=== PATIENT | female | born 1950 | race Caucasian/White ===

== ENCOUNTER → 2017-03-16 | Outpatient (CLI) | payer MEDICARE, OTHER ==
--- NOTE | 2017-03-16 09:32 | CTL ---
EXAMINATION TYPE: CT Low Dose Lung DATE OF EXAM ORDERED: 03/16/2017 HISTORY: . Lung cancer screening CT DLP: 75.[address] CTDI: 2.4 mGy Automated exposure control for dose reduction was used. SCREENING VISIT: 1. COMPARISON: None TECHNIQUE: Low dose computed tomography scan was performed through the chest at 1 mm thick sections a nd reconstructed images in the coronal plane at [address] DIAGNOSTIC QUALITY: Limited, but interpretable FINDINGS: LUNG NODULES: None. LUNGS: COPD: Severity: Minimal Fibrosis: Severity: None Lymph nodes: None Other findings: Scarring left lingula RIGHT PLEURAL SPACE: Effusion: None Calcification: None Thickening: None Pneumothorax: None LEFT PLEURAL SPACE: Effusion: None Calcification: None Thickening: None Pneumothorax: None HEART: Heart Size: Normal Coronary calcification: Mild to moderate Pericardial effusion: None OTHER FINDINGS: Upper abdomen: Unremarkable Bony thorax: Hypertrophic spondylosis within the spine Supraclavicular region: Unremarkable Other: None IMPRESSION: 1. NO SIGNIFICANT INTRATHORACIC ABNORMALITY. 2. DEGENERATIVE CHANGES WITHIN THE SPINE. FOLLOW UP CT CHEST RECOMMENDATION: Annual CT LUNG RAD: 1
== END | disposition home or self-care (01) ==
LOC: RADCTMAIN 08:43
PROVIDERS: ATTEND Internal Medicine Sleep Medicine
DX: Z12.2 Encounter for screening for malignant neoplasm of respiratory organs (principal); Z87.891 Personal history of nicotine dependence; M47.899 Other spondylosis, site unspecified

== ENCOUNTER → 2018-09-13 | Outpatient (CLI) | payer MEDICARE, OTHER ==
--- NOTE | 2018-09-13 12:17 | CTL ---
EXAMINATION TYPE: CT Low Dose Lung DATE OF EXAM ORDERED: 09/13/2018 COMPARISON: 03/16/2017 HISTORY: . Low Dose CT Lung Screening CT DLP: [address] CTDI: 3.41 mGy IV CONTRAST USED: None. SCREENING VISIT: First visit COMPARISON: None. TECHNIQUE: Low dose computed tomography scan was performed through the chest at 1 millimeter thick se ctions and reconstructed images in the coronal plane at [address] DIAGNOSTIC QUALITY: Satisfactory FINDINGS: LUNG NODULES: Not presentLeft lung: no nodules identified.Right lung: no nodules identified. LUNGS: COPD: Severity: None Fibrosis: Severity:None Lymph nodes: None Other findings: None RIGHT PLEURAL SPACE: Effusion: None Calcification: None Thickening: None Pneumothorax: None LEFT PLEURAL SPACE: Effusion: None Calcification: None Thickening: None Pneumothorax: None HEART: Heart Size: Mildly enlarged Coronary calcification: Mild Pericardial effusion: None OTHER FINDINGS: Upper abdomen: No significant abnormality Bony thorax: Degenerative changes Supraclavicular region: No significant abnormalityOther: No significant abnormalityI IMPRESSION: Benign FOLLOW UP CT CHEST RECOMMENDATION: Follow-up screening in one year CT LUNG RAD: 1
== END | disposition home or self-care (01) ==
LOC: RADCTMAIN 11:31
PROVIDERS: ATTEND Internal Medicine Sleep Medicine
DX: Z12.2 Encounter for screening for malignant neoplasm of respiratory organs (principal); Z87.891 Personal history of nicotine dependence

== ENCOUNTER → 2019-06-21 | Outpatient (CLI) | payer MEDICARE, OTHER ==
--- NOTE | 2019-06-21 20:00 | ECHOF ---
Referral Reason:R06.00 Dyspnea MEASUREMENTS -------- HEIGHT: 165.1 cm WEIGHT: 97.1 kg BP: IVSd: 1.4 cm (0.6 - 1.1) LVIDd: 6.1 cm (3.9 - 5.3) LVPWd: 1.5 cm (0.6 - 1.1) Ao Diam: 3.7 cm (2.0 - 3.7) AV Cusp: 1.9 cm (1.5 - 2.6) LA Diam: 4.4 cm (2.7 - 3.8) MV E Jermain: 0.60 m/s MV DecT: 255 ms MV A Jermain: 0.98 m/s MV E/A Ratio: 0.61 FINDINGS -------- Sinus rhythm. This was a technically difficult study with suboptimal views. All guido not well visulized Limite d Study There is moderate concentric left ventricular hypertrophy. Overall left ventricular systolic functi on is normal with, an EF between 55 - 60 %. The right ventricle is severely enlarged. The left atrium was not well visualized. The right atrium was not well visualized. xx ml of Lumason was utilized for enhancement of images. Septums are not well visualized. The aortic valve was not well visualized. The mitral valve was not well visualized. No mitral regurgitation. The tricuspid valve was not well visualized. The pulmonic valve was not well visualized. The aortic root size is normal. IVC Not well visulized. There is no pericardial effusion. CONCLUSIONS -------- 1. Sinus rhythm. 2. This was a technically difficult study with suboptimal views. 3. All guido not well visulized 4. Limited Study 5. There is moderate concentric left ventricular hypertrophy. 6. Overall left ventricular systolic function is normal with, an EF between 55 - 60 %. 7. The right ventricle is severely enlarged. 8. The left atrium was not well visualized. 9. The right atrium was not well visualized. 10. xx ml of Lumason was utilized for enhancement of images. 11. Septums are not well visualized. 12. The aortic valve was not well visualized. 13. The mitral valve was not well visualized. 14. No mitral regurgitation. 15. The tricuspid valve was not well visualized. 16. The pulmonic valve was not well visualized. 17. The aortic root size is normal. 18. IVC Not well visulized. 19. There is no pericardial effusion. SAMPLE WORKER: Soo Sands RDCS
== END | disposition home or self-care (01) ==
LOC: RADECHMAIN 14:15
PROVIDERS: ATTEND Family Medicine
DX: I51.7 Cardiomegaly (principal)
CPT/HCPCS: C8924; Q9950; 93308

== ENCOUNTER → 2019-09-19 | Outpatient (CLI) | payer MEDICARE, OTHER ==
--- NOTE | 2019-09-19 11:47 | CTL ---
EXAMINATION TYPE: CT Low Dose Lung DATE OF EXAM ORDERED: 09/19/2019 HISTORY: Long-term tobacco use. Lung cancer screening CT DLP: 132.[address] CTDI: 4.00 mGy Automated exposure control for dose reduction was used. SCREENING VISIT: Second visit after baseline COMPARISON: Prior studies 2019 and 2017 TECHNIQUE: Low dose computed tomography scan was performed through the chest at 1 mm thick sections a nd reconstructed images in the coronal plane at [address] DIAGNOSTIC QUALITY: Satisfactory FINDINGS: LUNG NODULES: None of significance few scattered micronodules for reference under 2 mm right upper lo be lateral aspect axial image 91, for reference 3 mm right upper lobe anterolateral nodule axial imag e 53. Nodules more localized to the right upper lobe. Nodules not significantly changed from prior st ud. No new greater than 4 mm nodules. LUNGS: COPD: Severity: Mild Fibrosis: Severity: Mild to moderate anterior lower lung Lymph nodes: No greater than 1 cm Other findings: None BILATERAL PLEURAL SPACE: Effusion: None Calcification: None Thickening: None Pneumothorax: None HEART: Heart Size: Normal Coronary calcification: Moderate three-vessel Pericardial effusion: None. OTHER FINDINGS: Upper abdomen: None Bony thorax: Mild/moderate multilevel anterior and lateral spurring. Supraclavicular region: None Other: None IMPRESSION: No new greater than 4 mm or enlarging nodules FOLLOW UP CT CHEST RECOMMENDATION: Annual low-dose lung screening CT should be considered. CT LUNG RAD: Lung-Rad 2 Benign Appearance or Behavior
== END | disposition home or self-care (01) ==
LOC: RADCTMAIN 11:08
PROVIDERS: ATTEND Internal Medicine Sleep Medicine
DX: Z12.2 Encounter for screening for malignant neoplasm of respiratory organs (principal); F17.210 Nicotine dependence, cigarettes, uncomplicated

== ENCOUNTER → 2021-06-15 | Outpatient (CLI) | payer MEDICARE, OTHER ==
--- NOTE | 2021-06-16 14:06 | MM ---
Reason for exam: screening (asymptomatic). Last mammogram was performed 2 years and 5 months ago. History: Patient is postmenopausal. Family history of breast cancer in daughter at age 46. Physical Findings: A clinical breast exam by your physician is recommended on an annual basis and results should be correlated with mammographic findings. MG 3D Screening Mammo W/Cad Bilateral CC, MLO, and XCCL view(s) were taken. Prior study comparison: January 03, 2019, mammogram, performed at [facility]. June 28, 2016, mammogram, performed at [facility]. There are scattered fibroglandular densities. There is chronic nodularity bilaterally. No significant changes when compared with prior studies. ASSESSMENT: Benign, BI-RAD 2 RECOMMENDATION: Routine screening mammogram of both breasts in 1 year.
== END | disposition home or self-care (01) ==
LOC: RADMAMWWP 15:50
PROVIDERS: ATTEND Family Medicine
DX: Z12.31 Encounter for screening mammogram for malignant neoplasm of breast (principal); Z78.0 Asymptomatic menopausal state; Z80.3 Family history of malignant neoplasm of breast
CPT/HCPCS: 77063; 77067

== ENCOUNTER → 2022-05-25 | Outpatient (CLI) | payer MEDICARE, OTHER ==
[2022-05-25 16:19] LABS: HCT 41.5 % (37.2-46.3); HGB 12.5 g/dL (12.0-15.0); MCH 28.7 pg (27.0-32.0); MCHC 30.1 g/dL (32.0-37.0); MCV 95.2 fL (80.0-97.0); Mean Platelet Volume 12.2 fL (9.5-12.2); NRBC Per 100 WBC 0 /100 WBCS (0.0-0.0); Platelet Count 361 X 10*3/uL (140-440); RBC 4.36 X 10*6/uL (4.10-5.20); RDW 13.6 % (11.5-14.5); WBC 8.37 X 10*3/uL (4.50-10.00)
[2022-05-25 16:34] LABS: African American GFR (CKD) 66.1 (60.0-200.0); Anion Gap 13.8 mmol/L (10.00-18.00); Blood Urea Nitrogen 13.2 mg/dL (9.0-27.0); Carbon Dioxide 26.2 mmol/L (20.0-27.5); Potassium 4.5 mmol/L (3.5-5.5)
== END | disposition home or self-care (01) ==
LOC: LABWHC1 07:44
PROVIDERS: ATTEND Internal Medicine Interventional Cardiology
DX: Z01.812 Encounter for preprocedural laboratory examination (principal); R06.02 Shortness of breath
CPT/HCPCS: 36415; 80051; 82565; 84520; 85027

== ENCOUNTER 2022-06-08 06:00 | Day surgery (SDC) | payer MEDICARE, OTHER ==
[~2022-06-08 06:00] MED LIST: ALPRAZolam 0.25 MG TAB PO PRN; ALPRAZolam 0.5 MG TAB PO PRN; NITROGLYCERIN SL TABS 0.4 MG TAB SUBLINGUAL PRN; SODIUM CHLORIDE 0.9% 1,000 ML in EMPTY BAG 1 BAG IV ONE
[2022-06-08] MEDS ORDERED: ASPIRIN 325 MG TAB PO ONE (07:00)
[2022-06-08 07:16] LABS: Calcium 9.1 mg/dL (8.4-10.2); Potassium 4.6 mmol/L (3.5-5.1)
[2022-06-08] MEDS ORDERED: HEPARIN SODIUM 1,000 UN/ML (10ML VL) ONE (07:50)
[2022-06-08] MEDS ORDERED: MIDAZOLAM 2 MG/2 ML VIAL IV ONE ×3 (07:55→08:05)
[2022-06-08] MEDS ORDERED: LIDOCAINE 1% INJ 10MG/ML (30 ML VIAL-PF) SQ ONE ×2 (07:55→08:01)
[2022-06-08] MEDS ORDERED: VERAPAMIL SYRINGE (5 MG/10 ML) INTRAARTER ONE (08:02)
[2022-06-08] MEDS: HEPARIN SODIUM 1,000 UN/ML (10ML VL) IV ONE ×2 (08:03→08:32)
[2022-06-08] MEDS ORDERED: HEPARIN SODIUM 1,000 UN/ML (10ML VL) IV ONE (08:03)
[2022-06-08] MEDS ORDERED: CLOPIDOGREL 75 MG TAB ONE (08:10)
[2022-06-08] MEDS ORDERED: CLOPIDOGREL 75 MG TAB PO ONE (08:15)
[2022-06-08] MEDS ORDERED: IOPAMIDOL-370 125ML BTL INJ ONE (08:22)
[2022-06-08] MEDS ORDERED: IPRATROPIUM-ALBUTEROL 3 ML NEB INHALATION PRN (08:27)
[2022-06-08] MEDS ORDERED: MAG HYDROX/AL HYDROX/SIMETH 30 ML CUP PO PRN (08:28)
[2022-06-08] MEDS ORDERED: ATROPINE SULFATE 0.1 MG/ML 10ML SYRINGE IV PRN (08:28)
[2022-06-08] MEDS ORDERED: RX INFO: IV CONTRAST WAS GIVEN 1 EACH MISC MISCELLANE PRN (08:28)
[2022-06-08] MEDS ORDERED: NITROGLYCERIN SL TABS 0.4 MG TAB SUBLINGUAL PRN (08:28)
[2022-06-08] MEDS ORDERED: ZOLPIDEM 5 MG TAB PO PRN (08:28)
[2022-06-08] MEDS ORDERED: SODIUM CHLORIDE 0.9% 1,000 ML in EMPTY BAG 1 BAG IV SCH (08:30)
--- NOTE | 2022-06-08 08:32 | P.PCN ---
Date of Procedure: 06/08/22 Operative Findings: PERCUTANEOUS CORONARY INTERVENTION Performing physician Santosh Odonnell M.D. Procedure Performed: 1. Successful stenting of the first obtuse marginal branch using 2.75 x 15 mm Xience drug-eluting stent with an excellent angiographic results. 2. Selective left coronary angiogram Indication: This is a 71-year-old female patient was seen in the office ascending or chest discomfort and she underwent myocardial perfusion imaging stress test and that showed moderate area of ischemia in the inferolateral wall. Subsequently she underwent a heart catheterization and that revealed phthisical disease involving OM. She was brought today to undergo an intervention Approach: Right radial artery Complications: None Level of Sedation: Moderate with a sedation length of 24 minute Procedure Discussion: After obtaining an informed consent the patient was brought to the cardiac slabbing machine operator. The right radial artery was cannulated using micropuncture technique, the micropuncture wire passed easily then I placed a 6-Vincentian sheath. I gave the patient 2 mg of verapamil intra-arterial and a total of 12,000 use of heparin intravenous throughout the procedure with ACT monitoring. Subsequently I did engage the left main using CLS guide. That was 3.5 guide. Subsequently I did wire and OM1 using initially a whisper wire and subsequently a run-through wire because of the tortuosity of the OM as well as the long left main. After that I did PTCA ballooning of OM using 2.5 x 12 mm balloon before I deployed 2.75 x 15 mm stent where the stent was positioned under fluoroscopy guidance and deployed under its nominal pressure. Post titration was performed using 3.0 mm balloon. The final angiogram showed excellent angiographic results and the procedure was completed without any complications Postprocedure Management: 1. Dual antiplatelet therapy using aspirin and Plavix for at least 6 month and preferably twelve-month 2. Aggressive cholesterol control 3. Risk factors modification
[2022-06-08] MEDS ORDERED: MAG HYDROX/AL HYDROX/SIMETH 30 ML CUP ONE (08:41)
[2022-06-08] MEDS: PARoxetine 20 MG TAB PO SCH (09:57)
[2022-06-08] MEDS: ATORVASTATIN 40 MG TAB PO SCH (09:57)
[2022-06-08] MEDS: lisinopriL 20 MG TAB PO SCH (09:57)
[2022-06-08] MEDS: METOPROLOL SUCCINATE (ER) 25 MG TAB.ER.24H PO SCH (09:57)
[2022-06-08] MEDS: DILTIAZEM CD 120 MG CAP.ER.24H PO SCH (09:57)
[2022-06-08] MEDS: IPRATROPIUM 0.5 MG/2.5 ML NEBU INHALATION SCH ×3 (12:28→19:33)
[2022-06-08] MEDS: SYMBICORT 80-4.5 MCG INHALER INHALATION SCH ×2 (12:28→19:33)
[2022-06-09 07:55] LABS: Basophils % (A) 1 %; Eosinophils # (A) 0.1 k/uL (0-0.7); Eosinophils % (A) 2 %; HCT 35.7 % (34.0-46.0); HGB 11.4 gm/dL (11.4-16.0); Lymphocytes # (A) 1.6 k/uL (1.0-4.8); Lymphocytes % (A) 24 %; MCH 29.4 pg (25.0-35.0); MCHC 31.9 g/dL (31.0-37.0); MCV 92.2 fL (80.0-100.0); Mean Platelet Volume 8.5; Monocytes # (A) 0.4 k/uL (0-1.0); Monocytes % (A) 5 %; Neutrophils # (A) 4.5 k/uL (1.3-7.7); Neutrophils % (A) 66 %; Platelet Count 267 k/uL (150-450); RBC 3.88 m/uL (3.80-5.40); RDW 13.5 % (11.5-15.5); WBC 6.7 k/uL (3.8-10.6)
[2022-06-09 08:08] LABS: African American GFR (CKD) 78 (>60 ml/min/1.73 sqM); Anion Gap 8 mmol/L; Blood Urea Nitrogen 22 mg/dL (7-17); Calcium 8.9 mg/dL (8.4-10.2); Carbon Dioxide 27 mmol/L (22-30); Chloride 104 mmol/L (98-107); Glucose 125 mg/dL (74-99); Non-African American GFR(CKD) 67 (>60 ml/min/1.73 sqM); Potassium 4.6 mmol/L (3.5-5.1); Sodium 139 mmol/L (137-145)
[2022-06-09] MEDS: METOPROLOL SUCCINATE (ER) 25 MG TAB.ER.24H PO SCH (08:37)
[2022-06-09] MEDS: lisinopriL 20 MG TAB PO SCH (08:37)
[2022-06-09] MEDS: DILTIAZEM CD 120 MG CAP.ER.24H PO SCH (08:38)
[2022-06-09] MEDS: PARoxetine 20 MG TAB PO SCH (08:38)
[2022-06-09] MEDS: ATORVASTATIN 40 MG TAB PO SCH (08:38)
[2022-06-09 08:47] VITALS: BP 102/62; RESP 16; TEMP 97.6
[2022-06-09] MEDS ORDERED: CLOPIDOGREL 75 MG TAB PO SCH (09:00)
[2022-06-09] MEDS ORDERED: ASPIRIN 81 MG PO SCH (09:00)
--- NOTE | 2022-06-09 09:06 | P.DS ---
Providers Attending physician: Santosh Odonnell Consults: 06/08/22 08:28 Consult Physician Routine Consulting Provider: [facility] Consult Reason/Comments: Post Interventional Patient Do you want consulting provider notified?: Already Contacted Primary care physician: García Chacon [facility] Course: The patient is a 71-year-old female patient who underwent yesterday successful stenting of the left circumflex coronary artery She was seen this morning beach she is asymptomatic be cheesy with an echo is stable. The right radial site is soft and nontender and without any bruises. The patient is going to be discharged home on dual antiplatelet therapy and I'll follow-up with the patient in a week in the office Plan - Discharge Summary Discharge Rx Participant: No New Discharge Prescriptions: No Action lisinopriL [Zestril] 20 mg PO DAILY Ipratropium-Albuterol Nebulize [Duoneb 0.5 mg-3 mg/3 ml Soln] 3 ml INHALATION DIRECTED PRN PRN Reason: Shortness Of Breath Fluticasone/Umeclidin/Vilanter [Trelegy Ellipta 100-62.5-25] 1 inhalation INHALATION DAILY PARoxetine [Paxil] 20 mg PO DAILY Atorvastatin [Lipitor] 40 mg PO DAILY dilTIAZem HCL [Cardizem CD] 120 mg PO DAILY Metoprolol Succinate (ER) [Toprol Xl] 25 mg PO DAILY Aspirin [Bertrand Aspirin EC] 81 mg PO DAILY Discharge Medication List Aspirin [Bertrand Aspirin EC] 81 mg PO DAILY 06/07/22 [History] Atorvastatin [Lipitor] 40 mg PO DAILY 06/07/22 [History] Fluticasone/Umeclidin/Vilanter [Trelegy Ellipta 100-62.5-25] 1 inhalation INHALATION DAILY 06/07/22 [History] Ipratropium-Albuterol Nebulize [Duoneb 0.5 mg-3 mg/3 ml Soln] 3 ml INHALATION DIRECTED PRN 06/07/22 [History] Metoprolol Succinate (ER) [Toprol Xl] 25 mg PO DAILY 06/07/22 [History] PARoxetine [Paxil] 20 mg PO DAILY 06/07/22 [History] dilTIAZem HCL [Cardizem CD] 120 mg PO DAILY 06/07/22 [History] lisinopriL [Zestril] 20 mg PO DAILY 06/07/22 [History]
[2022-06-09] MEDS: SYMBICORT 80-4.5 MCG INHALER INHALATION SCH (09:15)
[2022-06-09] MEDS: IPRATROPIUM 0.5 MG/2.5 ML NEBU INHALATION SCH (09:15)
[2022-06-09 09:25] VITALS: PULSE 69
== END 2022-06-09 10:30 | disposition home or self-care (01) ==
LOC: CATHCVL 06:00 → 6NMEDSUR 08:37 → CATHCVL 06-09 10:30
PROVIDERS: ATTEND Internal Medicine Interventional Cardiology
DX: I25.10 Atherosclerotic heart disease of native coronary artery without angina pectoris (principal); I77.1 Stricture of artery; J44.9 Chronic obstructive pulmonary disease, unspecified; I10 Essential (primary) hypertension; E78.5 Hyperlipidemia, unspecified; Z82.49 Family history of ischemic heart disease and other diseases of the circulatory system; Z20.822 Contact with and (suspected) exposure to COVID-19; Z72.0 Tobacco use; R00.0 Tachycardia, unspecified; E66.3 Overweight; Z68.38 Body mass index [BMI] 38.0-38.9, adult; Z79.82 Long term (current) use of aspirin; Z79.51 Long term (current) use of inhaled steroids; Z79.899 Other long term (current) drug therapy; Z79.52 Long term (current) use of systemic steroids; Z88.8 Allergy status to other drugs, medicaments and biological substances
CPT/HCPCS: 94640 ×4; 94760; 80048 ×2; 85025; 87635; C9600; C1769 ×3; C1887; C1894; C1725 ×2; C1874; J2250; J2001; J1644; Q9967

== ENCOUNTER → 2023-07-11 | Outpatient (CLI) | payer MEDICARE, OTHER ==
--- NOTE | 2023-07-12 07:49 | MM ---
Reason for Exam: Screening (asymptomatic). Last mammogram was performed 2 year(s) and 0 month(s) ago. Patient History: Menarche at age 14. First Full-Term at age 23. Postmenopausal. Daughter had breast cancer, age 46. Risk Values: Jo Ann 5 year model risk: 3.3%. NCI Lifetime model risk: 9.1%. Prior Study Comparison: 06/28/2016 Screening Mammogram, [facility]. 01/03/2019 Screening Mammogram, [facility]. 06/15/2021 Bilateral Screening Mammogram, [facility]. Tissue Density: There are scattered fibroglandular densities. Findings: Analyzed By CAD. There is no suspicious group of microcalcifications or new suspicious mass in either breast. Stable chronic nodularity within both breasts. Overall Assessment: Benign, BI-RAD 2 Management: Screening Mammogram of both breasts in 1 year. A clinical breast exam by your physician is recommended on an annual basis and results should be correlated with mammographic findings. Note on Jo Ann scores and lifetime risk: 1. A Jo Ann score greater than 3% is considered moderate risk. If this is the case, consider specialist referral to assess eligibility for a risk reducing agent. If overall lifetime risk for the development of breast cancer is 20% or higher, the patient may qualify for future screening with alternating mammogram and breast MRI. Electronically signed and approved by: Saw Chowdhury D.O.
== END | disposition home or self-care (01) ==
LOC: RADMAMWWP 10:33
PROVIDERS: ATTEND Family Medicine
DX: Z12.31 Encounter for screening mammogram for malignant neoplasm of breast (principal); Z78.0 Asymptomatic menopausal state; Z80.3 Family history of malignant neoplasm of breast
CPT/HCPCS: 77063; 77067

== ENCOUNTER → 2023-08-01 | Outpatient (CLI) | payer MEDICARE, OTHER ==
[~2023-08-01] MED LIST changes: -ALPRAZolam 0.25 MG TAB PO PRN; -ALPRAZolam 0.5 MG TAB PO PRN; +DENOSUMAB 60 MG/ML 1 ML SYRINGE SQ NR; -NITROGLYCERIN SL TABS 0.4 MG TAB SUBLINGUAL PRN; -SODIUM CHLORIDE 0.9% 1,000 ML in EMPTY BAG 1 BAG IV ONE
[2023-08-01 11:23] VITALS: BP 121/70; PULSE 60; RESP 16; TEMP 98
== END ==
LOC: PROCWHC3 10:36
PROVIDERS: ATTEND Family Medicine
DX: M81.0 Age-related osteoporosis without current pathological fracture (principal)
CPT/HCPCS: 96372; J0897

== ENCOUNTER 2023-10-02 17:06 | Inpatient (IN) | payer MEDICARE, OTHER ==
--- NOTE | 2023-10-02 17:51 | ED ---
General Adult HPI - General Source: patient Mode of arrival: ambulatory Limitations: no limitations <Sandie Patel - Last Filed: 10/02/23 17:50> - History of Present Illness -: days(s) Location: left, lower extremity Radiation: non-radiation Quality: aching Consistency: constant Improves with: none Worsens with: none Associated Symptoms: denies other symptoms Treatments Prior to Arrival: splint <Alexi Tai - Last Filed: 10/03/23 04:30> - General Chief complaint: Extremity Injury, Lower Stated complaint: Broken Left Ankle-sent [facility] Time Seen by Provider: 10/02/23 17:50 - History of Present Illness Initial comments: Patient sent in for admission for pending surgery for a left ankle fracture. (Sandie Patel) Patient is 73-year-old woman who was sent to have admission in order to have ORIF of left lower extremity fracture. Patient states she had a fall days ago. She had gone to the clinic today and they sent her here to have admission. She states there is a little bit of aching though the pain is not awful. She denies numbness of the foot. She states she is able to move the toes. (Alexi Tai) - Related Data Home Medications Medication Instructions Recorded Confirmed Aspirin [[place] Aspirin EC] 81 mg PO DAILY 06/07/22 10/02/23 Fluticasone/Umeclidin/Vilanter 1 puff INHALATION RT-DAILY 06/07/22 10/02/23 [Albertletereso Ellipta 100-62.5-25] Ipratropium-Albuterol Nebulize 3 ml INHALATION RT-QID PRN 06/07/22 10/02/23 [Duoneb 0.5 mg-3 mg/3 ml Soln] Metoprolol Succinate (ER) [Toprol 25 mg PO DAILY 06/07/22 10/02/23 XL] dilTIAZem HCL [Cardizem CD] 120 mg PO DAILY 06/07/22 10/02/23 lisinopriL [Zestril] 20 mg PO DAILY 06/07/22 10/02/23 Acetaminophen Tab [Tylenol Tab] 1,000 mg PO Q6HR PRN 10/02/23 10/02/23 Atorvastatin [Lipitor] 80 mg PO HS 10/02/23 10/02/23 Cholecalciferol [Vitamin D3 (25 25 mcg PO DAILY 10/02/23 10/02/23 Mcg = 1000 Iu)] Docusate [Colace] 100 mg PO TID PRN 10/02/23 10/02/23 Ezetimibe [Zetia] 10 mg PO HS 10/02/23 10/02/23 HYDROcodone/APAP 5-325MG [[place] 1 - 2 tab PO Q4HR PRN 10/02/23 10/02/23 5-325] Ibuprofen [Motrin] 800 mg PO Q8H PRN 10/02/23 10/02/23 Metoclopramide [Reglan] 10 mg PO ACHS PRN 10/02/23 10/02/23 PARoxetine HCL [Paxil] 30 mg PO DAILY 10/02/23 10/02/23 Triamcinolone 0.1% Cream [Kenalog 1 applicatio TOPICAL BID PRN 10/02/23 10/02/23 0.1% Cream] Previous Rx's Medication Instructions Recorded Clopidogrel [Plavix] 75 mg PO DAILY tab 06/09/22 Allergies Allergy/AdvReac Type Severity Reaction Status Date / Time No Known Allergies Allergy Verified 10/02/23 21:22 Review of Systems ROS Other: All systems not noted in ROS Statement are negative. <Sandie Patel - Last Filed: 10/02/23 17:50> ROS Other: All systems not noted in ROS Statement are negative. Constitutional: Denies: fever, chills, weakness Respiratory: Denies: cough, dyspnea Cardiovascular: Denies: chest pain, syncope Gastrointestinal: Denies: abdominal pain, vomiting, diarrhea Genitourinary: Denies: dysuria, hematuria Musculoskeletal: Reports: as per HPI, arthralgia Skin: Denies: rash Neurological: Denies: headache, weakness, numbness <Alexi Tai - Last Filed: 10/03/23 04:30> ROS Statement: Those systems with pertinent positive or pertinent negative responses have been documented in the HPI. Past Medical History Past Medical History: COPD, Hyperlipidemia, Hypertension, Osteoarthritis (OA) Additional Past Medical History / Comment(s): recent stress test History of Any Multi-Drug Resistant Organisms: None Reported Past Surgical History: Section, Heart Catheterization, Orthopedic Surgery Additional Past Surgical History / Comment(s): recent heart cath 9/22 @[facility] Orozco, right CTS Past Anesthesia/Blood Transfusion Reactions: No Reported Reaction Past Psychological History: Anxiety Smoking Status: Former smoker Past Alcohol Use History: None Reported <Sandie Patel - Last Filed: 10/02/23 17:50> General Exam Limitations: no limitations <Sandie Patel - Last Filed: 10/02/23 17:50> Limitations: no limitations General appearance: alert, in no apparent distress Head exam: Present: atraumatic, normocephalic Eye exam: Present: normal appearance. Absent: scleral icterus, conjunctival injection Neck exam: Present: normal inspection, full ROM. Absent: tenderness Respiratory exam: Present: normal lung sounds bilaterally. Absent: respiratory distress, wheezes, rales, rhonchi, stridor, accessory muscle use Cardiovascular Exam: Present: regular rate, normal rhythm, normal heart sounds. Absent: systolic murmur, diastolic murmur, rubs, gallop GI/Abdominal exam: Present: soft. Absent: tenderness, guarding, rebound Extremities exam: Present: other (Patient does have lower leg splint to the left lower extremity. The patient does have sensation and motor function to the toes. They are displaying mild edema. Normal capillary refill.) Back exam: Absent: vertebral tenderness Neurological exam: Present: alert. Absent: motor sensory deficit Skin exam: Present: warm, dry, intact, normal color. Absent: rash <Alexi Tai - Last Filed: 10/03/23 04:30> - General Exam Comments Initial Comments: Visual Physical Exam Vital signs reviewed General: Well-appearing, nontoxic, no acute distress. Head: Normocephalic, atraumatic Eyes: PERRLA, EOMI ENT: Airway patent Chest: Nonlabored breathing Skin: No visual rash, normal skin tone Neuro: Alert and oriented 3 Musculoskeletal:left ankle pain (Sandie Patel) Course Vital Signs 10/02/23 10/02/23 10/02/23 17:10 20:20 22:43 Temperature 98.1 F Pulse Rate 83 69 68 Respiratory 20 18 18 Rate Blood Pressure 151/79 120/58 126/73 O2 Sat by Pulse 97 95 96 Oximetry 10/02/23 10/03/23 23:16 01:40 Temperature Pulse Rate 68 67 Respiratory 19 17 Rate Blood Pressure 110/66 124/61 O2 Sat by Pulse 98 95 Oximetry Medical Decision Making <Sandie Patel - Last Filed: 10/02/23 17:50> - Lab Data Result diagrams: 10/02/23 18:33 10/02/23 18:33 <Alexi Tai - Last Filed: 10/03/23 04:30> - Medical Decision Making Quick note portion completed by myself, electronically signed DEBORAH Cage. (Sandie Patel) Patient is 73-year-old woman sent here to have admission pending surgery for left lower extremity ORIF. I phoned Dr. Koenig who is covering for orthopedic [facility] and she requests admission. Was pt. sent in by a medical professional or institution (, PA, TICKET ATTENDANT, urgent care, hospital, or half-way...) When possible be specific @ -This the patient was sent from orthopedic [facility] clinic as above Did you speak to anyone other than the patient for history (EMS, parent, family, police, friend...)? What history was obtained from this source @ -[The patient's family did contribute to history Did you review nursing and triage notes (agree or disagree)? Why? @ -[I reviewed and agree with nursing and triage notes] Were old charts reviewed (outside hosp., previous admission, EMS record, old EKG, old radiological studies, urgent care reports/EKG's, half-way records)? Report findings @ -[No old charts were reviewed] Differential Diagnosis (chest pain, altered mental status, abdominal pain women, abdominal pain men, vaginal bleeding, weakness, fever, dyspnea, syncope, headache, dizziness, GI bleed, back pain, seizure, CVA, palpatations, mental health, musculoskeletal)? @ -[Differential Musculoskeletal Muscular strain, contusion, ligament sprain, fracture, arthritis, septic arthri tis, bursitis, cellulitis, muscle spasm, nerve compression, DVT, arterial occlusion, herpes zoster, electrolyte abnormality, tumor.... This is not meant to be in all inclusive list EKG interpreted by me (3pts min.). @ -[As above] X-rays interpreted by me (1pt min.). @ -[None done] CT interpreted by me (1pt min.). @ -[None done] U/S interpreted by me (1pt. min.). @ -[None done] What testing was considered but not performed or refused? (CT, X-rays, U/S, labs)? Why? @ -[None] What meds were considered but not given or refused? Why? @ -[None] Did you discuss the management of the patient with other professionals (professionals i.e. , PA, TICKET ATTENDANT, lab, RT, psych nurse, social work supervisor, delivery supervisor, teacher, bank compliance officer, renal case manager)? Give summary @ -[Case discussed with Dr. Koenig as above Was smoking cessation discussed for >3mins.? @ -[No] Was critical care preformed (if so, how long)? @ -[No] Were there social determinants of health that impacted care today? How? (Homelessness, low income, unemployed, alcoholism, drug addiction, trans portation, low edu. Level, literacy, decrease access to med. care, prison, rehab)? @ -[No] Was there de-escalation of care discussed even if they declined (Discuss DNR or withdrawal of care, Hospice)? DNR status @ -[No] What co-morbidities impacted this encounter? (DM, HTN, Smoking, COPD, CAD, Cancer, CVA, ARF, Chemo, Hep., AIDS, mental health diagnosis, sleep apnea, morbid obesity)? @ -[None] Was patient admitted / discharged? Hospital course, mention meds given and route, prescriptions, significant lab abnormalities, going to OR and other pertinent info. @ -[Patient be admitted, made nothing by mouth after midnight, the patient's Plavix will be held pending surgery. Undiagnosed new problem with uncertain prognosis? @ -[No] Drug Therapy requiring intensive monitoring for toxicity (Heparin, Nitro, Ins ulin, Cardizem)? @ -[No] Were any procedures done? @ -[No] Diagnosis/symptom? @ -[Left lower extremity fracture Acute, or Chronic, or Acute on Chronic? @ -[Acute Uncomplicated (without systemic symptoms) or Complicated (systemic symptoms)? @ -[Uncomplicated Side effects of treatment? @ -[No] Exacerbation, Progression, or Severe Exacerbation? @ -[No] Poses a threat to life or bodily function? How? (Chest pain, [place], [place], pneumonia, PE, COPD, DKA, ARF, appy, cholecystitis, CVA, Diverticulitis, Homicidal, Suicidal, threat to staff... and all critical care pts) @ -[No] (Alexi Tai) - Lab Data Lab Results 10/02/23 10/02/23 10/02/23 Range/Units 18:33 18:33 18:33 WBC 13.5 H (3.8-10.6) k/uL RBC 4.31 (3.80-5.40) m/uL Hgb 13.1 (11.4-16.0) gm/dL Hct 39.3 (34.0-46.0) % MCV 91.1 (80.0-100.0) fL MCH 30.4 (25.0-35.0) pg MCHC 33.4 (31.0-37.0) g/dL RDW 13.4 (11.5-15.5) % Plt Count 363 (150-450) k/uL MPV 8.2 Neutrophils % 76 % Lymphocytes % 17 % Monocytes % 5 % Eosinophils % 0 % Basophils % 0 % Neutrophils # 10.2 H (1.3-7.7) k/uL Lymphocytes # 2.3 (1.0-4.8) k/uL Monocytes # 0.6 (0-1.0) k/uL Eosinophils # 0.0 (0-0.7) k/uL Basophils # 0.1 (0-0.2) k/uL PT 9.9 L (10.0-12.5) sec INR 0.9 (<1.2) APTT 23.1 (22.0-30.0) sec Sodium 139 (137-145) mmol/L Potassium 4.8 (3.5-5.1) mmol/L Chloride 105 (98-107) mmol/L Carbon Dioxide 23 (22-30) mmol/L Anion Gap 11 mmol/L BUN 28 H (7-17) mg/dL Creatinine 0.92 (0.52-1.04) mg/dL Est GFR (CKD-EPI)AfAm 72 (>60 ml/min/1.73 sqM) Est GFR (CKD-EPI)NonAf 63 (>60 ml/min/1.73 sqM) Glucose 118 H (74-99) mg/dL Calcium 10.0 (8.4-10.2) mg/dL Total Bilirubin 0.8 (0.2-1.3) mg/dL AST 21 (14-36) U/L ALT 18 (4-34) U/L Alkaline Phosphatase 143 H (38-126) U/L Total Protein 7.8 (6.3-8.2) g/dL Albumin 4.5 (3.5-5.0) g/dL Disposition <Sandie Patel - Last Filed: 10/02/23 17:50> Is patient prescribed a controlled substance at d/c from ED?: No <Alexi Tai - Last Filed: 10/03/23 04:30> Clinical Impression: Leg fracture, left Disposition: ADMITTED IP TO THIS HOSP Condition: Fair
[2023-10-02 19:18] LABS: Basophils # (A) 0.1 k/uL (0-0.2); Basophils % (A) 0 %; Eosinophils % (A) 0 %; HCT 39.3 % (34.0-46.0); HGB 13.1 gm/dL (11.4-16.0); Lymphocytes # (A) 2.3 k/uL (1.0-4.8); Lymphocytes % (A) 17 %; MCH 30.4 pg (25.0-35.0); MCHC 33.4 g/dL (31.0-37.0); MCV 91.1 fL (80.0-100.0); Mean Platelet Volume 8.2; Monocytes # (A) 0.6 k/uL (0-1.0); Monocytes % (A) 5 %; Neutrophils # (A) 10.2 k/uL (1.3-7.7); Neutrophils % (A) 76 %; Platelet Count 363 k/uL (150-450); RBC 4.31 m/uL (3.80-5.40); RDW 13.4 % (11.5-15.5); WBC 13.5 k/uL (3.8-10.6)
[2023-10-02 19:27] LABS: ALT 18 U/L (4-34); AST 21 U/L (14-36); African American GFR (CKD) 72 (>60 ml/min/1.73 sqM); Albumin 4.5 g/dL (3.5-5.0); Alkaline Phosphatase 143 U/L (38-126); Anion Gap 11 mmol/L; Blood Urea Nitrogen 28 mg/dL (7-17); Carbon Dioxide 23 mmol/L (22-30); Chloride 105 mmol/L (98-107); Glucose 118 mg/dL (74-99); Non-African American GFR(CKD) 63 (>60 ml/min/1.73 sqM); Potassium 4.8 mmol/L (3.5-5.1); Sodium 139 mmol/L (137-145); Total Bilirubin 0.8 mg/dL (0.2-1.3); Total Protein 7.8 g/dL (6.3-8.2)
[2023-10-02 19:40] LABS: INR 0.9 (<1.2); Partial Thromboplastin Time 23.1 sec (22.0-30.0); Prothrombin Time 9.9 sec (10.0-12.5)
[2023-10-02] MEDS ORDERED: NALOXONE 0.4 MG/ML 1 ML VIAL IV PRN (19:54)
[2023-10-02] MEDS ORDERED: IPRATROPIUM-ALBUTEROL 3 ML NEB INHALATION PRN (21:57)
[2023-10-02] MEDS ORDERED: DOCUSATE 100 MG CAP PO PRN (21:57)
[2023-10-02] MEDS ORDERED: METOCLOPRAMIDE 10 MG TAB PO PRN (21:57)
[2023-10-02] MEDS ORDERED: MORPHINE SULFATE 4 MG/ML SYRINGE IV PRN (21:57)
[2023-10-02] MEDS ORDERED: IBUPROFEN 800 MG TAB PO PRN (21:57)
[2023-10-02] MEDS: HYDROcodone/APAP 5-325MG 1 EACH TAB PO PRN (22:45)
[2023-10-03] MEDS: IPRATROPIUM 0.5 MG/2.5 ML NEBU INHALATION SCH ×4 (07:39→18:48)
[2023-10-03] MEDS: SYMBICORT 80-4.5 MCG INHALER INHALATION SCH ×2 (07:39→18:48)
[2023-10-03] MEDS: DILTIAZEM CD 120 MG CAP.ER.24H PO SCH (08:31)
[2023-10-03] MEDS: lisinopriL 20 MG TAB PO SCH (08:31)
[2023-10-03] MEDS: PARoxetine 10 MG TAB PO SCH (08:32)
[2023-10-03] MEDS: CHOLECALCIFEROL 25 MCG (1000 IU) TABLET PO SCH (08:32)
[2023-10-03] MEDS: METOPROLOL SUCCINATE (ER) 25 MG TAB.ER.24H PO SCH (08:48)
[2023-10-03] MEDS: HYDROcodone/APAP 5-325MG 1 EACH TAB PO PRN (09:00)
--- NOTE | 2023-10-03 12:13 | P.CONS ---
History of Present Illness - Reason for Consult Consult date: 10/03/23 - Chief Complaint ankle pain - History of Present Illness Patient is a 73-year-old female with coronary artery disease status post stenting to the LAD in 2021, COPD, hypertension, dyslipidemia, and os teoarthritis who presented to the hospital at the direction of orthopedic surgery for ORIF of left ankle. Patient had a fall several days ago and was seen in the ER at [facility] where she had a short leg splint. She was then saw Dr. Aguirre in the office who again applied a splint and recommended her come to the hospital for operative repair. Patient seen and examined at bedside. She currently is having pain in her left ankle. She states that she had a mechanical fall when outside and slipping on ice. She denies any loss of consciousness. She has been unable to get around as she cannot do stairs and has been unable to walk. She reports that she was in her normal state of health until the fall. She denies any overt chest pain, unusual shortness of breath. At home she is able to do all her ADLs without help. She walks short distances. Vital signs reviewed General: nontoxic, no distress, appears at stated age Derm: warm, dry Eyes: EOMI, no lid lag, anicteric sclera, pupils equal round reactive to light ENT: Nose and ears atraumatic Cardiovascular: S1S2 reg, no murmur, no edema Lungs: clear to auscultation bilateral, no rhonchi, no rales, no wheeze, no accessory muscle use Abdominal: soft, nontender to palpation, no guarding Ext: no gross muscle atrophy, no contractures, left ankle with splint in place, patient is able to wiggle toes but reports that they are numb and she does not feel me touching them. Neuro: CN II-XII grossly intact, decreased sensation left toes Psych: Alert, oriented, appropriate affect Assessment/Plan: 73-year-old female with severely displaced bimalleolar ankle fracture with plans for ORIF per orthopedic surgery. Preoperative risk evaluation. METS per Driver activity index 5.96. Patient has no active chest pain or lethal arrhythmias. Records reviewed from cardiology office. Patient is an elevated but acceptable risk for the proposed noncardiac surgery. She does not require any further cardiac testing. -Cardiology office notes reviewed from outpatient echocardiogram which showed an ejection fraction of 55%, mild LVH. Last progress note from 06/20/2023 said that patient could discontinue Plavix. However it is on her home med list still. Coronary artery disease status post stenting to the LAD Hypertension Dyslipidemia -Hold Plavix and aspirin until okayed by orthopedic surgery -Lipitor 80 mg at night, Zetia 10 mg at night -Metoprolol 25 mg daily, lisinopril 20 mg daily Imaging: None Data Review: EKG reveals normal sinus rhythm at a rate of 72 bpm with occasional PVC. Normal axis, normal intervals, no significant ST-T wave changes. Labs reviewed from today include CBC, coags, and CMP which are remarkable for white blood cell count 13.5, PT 9.9, BUN 28, glucose 118. Thank you for allowing us to participate in the care of this pleasant patient. Do not hesitate to contact us with questions. Someone can be reached from the [facility] hospitalist group all hours of the day at [phone] or via Nomi. This dictation was prepared using [employer] voice recognition software. Though every attempt is made to correct errors during dictation some may still exist. Past Medical History Past Medical History: Coronary Artery Disease (CAD), COPD, Hyperlipidemia, Hypertension, Osteoarthritis (OA) Additional Past Medical History / Comment(s): recent stress test History of Any Multi-Drug Resistant Organisms: None Reported Past Surgical History: Section, Heart Catheterization, Orthopedic Surgery Additional Past Surgical History / Comment(s): recent heart cath 06/02 @[facility] Past Anesthesia/Blood Transfusion Reactions: No Reported Reaction Past Psychological History: Anxiety Smoking Status: Former smoker Past Alcohol Use History: None Reported Medications and Allergies Home Medications Medication Instructions Recorded Confirmed Type Aspirin [Froid Aspirin EC] 81 mg PO DAILY 06/07/22 10/02/23 History Fluticasone/Umeclidin/Vilanter 1 puff INHALATION RT-DAILY 06/07/22 10/02/23 History [Treletereso Ellipta 100-62.5-25] Ipratropium-Albuterol Nebulize 3 ml INHALATION RT-QID PRN 06/07/22 10/02/23 History [Duoneb 0.5 mg-3 mg/3 ml Soln] Metoprolol Succinate (ER) [Toprol 25 mg PO DAILY 06/07/22 10/02/23 History XL] dilTIAZem HCL [Cardizem CD] 120 mg PO DAILY 06/07/22 10/02/23 History lisinopriL [Zestril] 20 mg PO DAILY 06/07/22 10/02/23 History Clopidogrel [Plavix] 75 mg PO DAILY tab 06/09/22 10/02/23 Rx Acetaminophen Tab [Tylenol Tab] 1,000 mg PO Q6HR PRN 10/02/23 10/02/23 History Atorvastatin [Lipitor] 80 mg PO HS 10/02/23 10/02/23 History Cholecalciferol [Vitamin D3 (25 25 mcg PO DAILY 10/02/23 10/02/23 History Mcg = 1000 Iu)] Docusate [Colace] 100 mg PO TID PRN 10/02/23 10/02/23 History Ezetimibe [Zetia] 10 mg PO HS 10/02/23 10/02/23 History HYDROcodone/APAP 5-325MG [Crocker 1 - 2 tab PO Q4HR PRN 10/02/23 10/02/23 History 5-325] Ibuprofen [Motrin] 800 mg PO Q8H PRN 10/02/23 10/02/23 History Metoclopramide [Reglan] 10 mg PO ACHS PRN 10/02/23 10/02/23 History PARoxetine HCL [Paxil] 30 mg PO DAILY 10/02/23 10/02/23 History Triamcinolone 0.1% Cream [Kenalog 1 applicatio TOPICAL BID PRN 10/02/23 10/02/23 History 0.1% Cream] Allergies Allergy/AdvReac Type Severity Reaction Status Date / Time No Known Allergies Allergy Verified 10/02/23 21:22 Physical Exam Osteopathic Statement: *. No significant issues noted on an osteopathic structural exam other than those noted in the History and Physical/Consult. Vitals: Vital Signs Temp Pulse Resp BP Pulse Ox 10/03/23 08:29 83 18 131/60 93 L 10/03/23 07:49 70 10/03/23 07:41 76 10/03/23 05:30 98.0 F 70 18 107/69 95 10/03/23 04:00 63 18 95/64 96 10/03/23 01:40 67 17 124/61 95 10/02/23 23:16 68 19 110/66 98 10/02/23 22:43 68 18 126/73 96 10/02/23 20:20 69 18 120/58 95 10/02/23 17:10 98.1 F 83 20 151/79 97 Intake and Output 10/02/23 10/03/23 10/03/23 22:59 06:59 14:59 Other: Weight 99.79 kg Results CBC & Chem 7: 10/02/23 18:33 10/02/23 18:33 Labs: Abnormal Lab Results - Last 24 Hours (Table) 10/02/23 10/02/23 10/02/23 Range/Units 18:33 18:33 18:33 WBC 13.5 H (3.8-10.6) k/uL Neutrophils # 10.2 H (1.3-7.7) k/uL PT 9.9 L (10.0-12.5) sec BUN 28 H (7-17) mg/dL Glucose 118 H (74-99) mg/dL Alkaline Phosphatase 143 H (38-126) U/L
[2023-10-03] MEDS: ATORVASTATIN 80 MG TAB PO SCH (20:51)
[2023-10-03] MEDS: EZETIMIBE 10 MG TAB PO SCH (20:51)
[2023-10-04] MEDS: IPRATROPIUM 0.5 MG/2.5 ML NEBU INHALATION SCH ×4 (08:31→20:16)
[2023-10-04] MEDS: SYMBICORT 80-4.5 MCG INHALER INHALATION SCH ×2 (08:31→20:16)
[2023-10-04] MEDS: DILTIAZEM CD 120 MG CAP.ER.24H PO SCH (08:57)
[2023-10-04] MEDS: PARoxetine 10 MG TAB PO SCH (08:57)
[2023-10-04] MEDS: CHOLECALCIFEROL 25 MCG (1000 IU) TABLET PO SCH (08:57)
[2023-10-04] MEDS: HYDROcodone/APAP 5-325MG 1 EACH TAB PO PRN (08:57)
[2023-10-04] MEDS: METOPROLOL SUCCINATE (ER) 25 MG TAB.ER.24H PO SCH (08:57)
[2023-10-04] MEDS: lisinopriL 20 MG TAB PO SCH (08:57)
[2023-10-04 11:13] LABS: HCT 36.7 % (37.2-46.3); HGB 11.4 g/dL (12.0-15.0); MCH 29.8 pg (27.0-32.0); MCHC 31.1 g/dL (32.0-37.0); MCV 96.1 FL (80.0-97.0); Mean Platelet Volume 10.2 FL (9.5-12.2); NRBC Per 100 WBC 0 X 10*3/uL (0.00-0.01); Platelet Count 259 X 10*3/uL (140-440); RBC 3.82 X 10*6/uL (4.10-5.20); RDW 13.8 % (11.5-14.5); WBC 11.66 X 10*3/uL (4.50-10.00)
--- NOTE | 2023-10-04 11:20 | P.HPOR ---
History of Present Illness H&P Date: 10/03/23 Chief Complaint: Displaced bimalleolar ankle fracture left 73y/o female admitted for a displaced ankle fracture requiring surgery and rehab placement post-operatively. Date of injury: 10-01-2023 Patient suffered and ankle injury on the above date after slipping on the ice. She states that the foot and ankle were not aligned properly after the injury. She was taken by ambulance to [facility]. Patient claims that the staff attempted a closed reduction x2, but were unable to effectively reduce the fracture. She was splinted and discharged. She was referred to [facility] and was evaluated on 10-02-23. Explained to patient that she would require surgery. She also stated that she would need to be discharged to a rehab facility after surgery due to not being able to care for herself given her current disability. Past Medical History Past Medical History: Coronary Artery Disease (CAD), COPD, Hyperlipidemia, Hypertension, Osteoarthritis (OA) Additional Past Medical History / Comment(s): recent stress test History of Any Multi-Drug Resistant Organisms: None Reported Past Surgical History: Section, Heart Catheterization, Orthopedic Surgery Additional Past Surgical History / Comment(s): recent heart cath 06/02 @[facility], right CTS Past Anesthesia/Blood Transfusion Reactions: No Reported Reaction Past Psychological History: Anxiety Smoking Status: Former smoker Past Alcohol Use History: None Reported Medications and Allergies Home Medications Medication Instructions Recorded Confirmed Type Aspirin [Centre Aspirin EC] 81 mg PO DAILY 06/07/22 10/02/23 History Fluticasone/Umeclidin/Vilanter 1 puff INHALATION RT-DAILY 06/07/22 10/02/23 History [Treletereso Ellipta 100-62.5-25] Ipratropium-Albuterol Nebulize 3 ml INHALATION RT-QID PRN 06/07/22 10/02/23 History [Duoneb 0.5 mg-3 mg/3 ml Soln] Metoprolol Succinate (ER) [Toprol 25 mg PO DAILY 06/07/22 10/02/23 History XL] dilTIAZem HCL [Cardizem CD] 120 mg PO DAILY 06/07/22 10/02/23 History lisinopriL [Zestril] 20 mg PO DAILY 06/07/22 10/02/23 History Clopidogrel [Plavix] 75 mg PO DAILY tab 06/09/22 10/02/23 Rx Acetaminophen Tab [Tylenol Tab] 1,000 mg PO Q6HR PRN 10/02/23 10/02/23 History Atorvastatin [Lipitor] 80 mg PO HS 10/02/23 10/02/23 History Cholecalciferol [Vitamin D3 (25 25 mcg PO DAILY 10/02/23 10/02/23 History Mcg = 1000 Iu)] Docusate [Colace] 100 mg PO TID PRN 10/02/23 10/02/23 History Ezetimibe [Zetia] 10 mg PO HS 10/02/23 10/02/23 History HYDROcodone/APAP 5-325MG [Haines 1 - 2 tab PO Q4HR PRN 10/02/23 10/02/23 History 5-325] Ibuprofen [Motrin] 800 mg PO Q8H PRN 10/02/23 10/02/23 History Metoclopramide [Reglan] 10 mg PO ACHS PRN 10/02/23 10/02/23 History PARoxetine HCL [Paxil] 30 mg PO DAILY 10/02/23 10/02/23 History Triamcinolone 0.1% Cream [Kenalog 1 applicatio TOPICAL BID PRN 10/02/23 10/02/23 History 0.1% Cream] Allergies Allergy/AdvReac Type Severity Reaction Status Date / Time No Known Allergies Allergy Verified 10/02/23 21:22 Physical Examination Osteopathic Statement: *. No significant issues noted on an osteopathic structural exam other than those noted in the History and Physical/Consult. - Ankle & Foot left Ankle appearance: swelling, other (Small fracture blister anterior-medial ankle) Tenderness with palpation: anteromedial ankle, medial ankle, lateral ankle, anterolateral ankle Ankle pain worse with weight bearing: Yes Ankle pain relieved by non-weight bearing: Yes Ankle alignment: other (lateral displacement of the ankle compared to the leg with prominance of the medial malleolus) Results - Labs Labs: Abnormal Lab Results - Last 24 Hours (Table) 10/02/23 10/02/23 10/02/23 Range/Units 18:33 18:33 18:33 WBC 13.5 H (3.8-10.6) k/uL Neutrophils # 10.2 H (1.3-7.7) k/uL PT 9.9 L (10.0-12.5) sec BUN 28 H (7-17) mg/dL Glucose 118 H (74-99) mg/dL Alkaline Phosphatase 143 H (38-126) U/L H & H 10/02/23 Range/Units 18:33 Hgb 13.1 (11.4-16.0) gm/dL Hct 39.3 (34.0-46.0) % Coagulation 10/02/23 Range/Units 18:33 INR 0.9 (<1.2) Result Diagrams: 10/04/23 06:30 10/02/23 18:33 - Diagnostic results Ankle/Foot x-ray: other (displaced bimalleolar ankle fracture with lateral subluxation of the talus in the mortice. Films from [facility] taken on 10-01-23) Assessment and Plan (1) Displaced bimalleolar fracture of left ankle Current Visit: Yes Status: Acute Code(s): S82.842A - DISPLACED BIMALLEOLAR FRACTURE OF LEFT LOWER LEG, INIT SNOMED Code(s): 792461760 Plan: Patient admitted on 10-02-23. Open reduction with internal fixation of left ankle scheduled on 10-04-23 Patient will remain admitted until rehab placement
[2023-10-04] MEDS ORDERED: MORPHINE SULFATE 2 MG/ML SYRINGE IV PRN ×4 (11:29)
[2023-10-04 11:32] LABS: BUN/Creat Ratio 25.58 Ratio (12.00-20.00); Blood Urea Nitrogen 30.7 mg/dL (9.0-27.0); Calcium 9.3 mg/dL (8.7-10.3); Carbon Dioxide 22.9 mmol/L (21.6-31.8); Chloride 105 mmol/L (96-109); Glucose 137 mg/dL (70-110); Sodium 139 mmol/L (135-145)
--- NOTE | 2023-10-04 11:38 | P.PN ---
Subjective Progress Note Date: 10/04/23 Subjective: Patient seen and examined at bedside. No acute events overnight. Continues to have left ankle pain. Pertinent positives and negatives as discussed above, a complete review of systems was performed and all other systems are negative. Vitals Signs Reviewed. General: nontoxic, no distress, appears at stated age Derm: warm, dry Eyes: EOMI, no lid lag, anicteric sclera, pupils equal round reactive to light ENT: Nose and ears atraumatic Cardiovascular: S1S2 reg, no murmur, no edema Lungs: clear to auscultation bilateral, no rhonchi, no rales, no wheeze, no accessory muscle use Abdominal: soft, nontender to palpation, no guarding Ext: no gross muscle atrophy, no contractures, left ankle with splint in place, patient is able to wiggle toes but reports that they are numb and she does not feel me touching them. Neuro: CN II-XII grossly intact, decreased sensation left toes Psych: Alert, oriented, appropriate affect Data Reviewed Today: Pertinent Labs: WBC 11.66, hemoglobin 11.4, creatinine 1.2, glucose 137 Imaging: No new imaging Assessment and Plan: Left ankle fracture Preoperative risk evaluation METS per Driver activity index 5.96. Patient has no active chest pain or lethal arrhythmias. Records reviewed from cardiology office. Patient is an elevated but acceptable risk for the proposed noncardiac surgery. She does not require any further cardiac testing. -Cardiology office: outpatient echocardiogram which showed an ejection fraction of 55%, mild LVH. Last progress note from 06/20/2023 said that patient could discontinue Plavix. However it is on her home med list still. -Pain control with oral Ponce as needed, IV morphine as needed, monitor for sedation Coronary artery disease status post stenting to the LAD Hypertension Dyslipidemia COPD, not in exacerbation -Hold Plavix and aspirin until okayed by orthopedic surgery -Lipitor 80 mg at night, Zetia 10 mg at night -Metoprolol 25 mg daily, lisinopril 20 mg daily, Cardizem 120 daily -Continue Symbicort twice daily, Atrovent 4 times daily, DuoNeb as needed 4 times daily Per surgery, patient will likely need rehab placement following surgery Thank you for allowing us to participate in the care of this pleasant patient. Do not hesitate to contact us with questions. Someone can be reached from the [facility] hospitalist group all hours of the day at [phone] or via perfect serve. Objective - Vital Signs Vital signs: Vital Signs Temp 98.4 F 10/04/23 07:55 Pulse 76 10/04/23 08:44 Resp 17 10/04/23 07:55 BP 115/63 10/04/23 07:55 Pulse Ox 92 L 10/04/23 07:55 FiO2 Intake & Output 10/03/23 10/04/23 10/04/23 18:59 06:59 18:59 Weight 99.79 kg Other: # Voids 2 - Labs CBC & Chem 7: 10/04/23 06:30 10/04/23 06:30 Labs: Abnormal Lab Results - Last 24 Hours (Table) 10/04/23 10/04/23 Range/Units 06:30 06:30 WBC 11.66 H (4.50-10.00) X 10*3/uL RBC 3.82 L (4.10-5.20) X 10*6/uL Hgb 11.4 L (12.0-15.0) g/dL Hct 36.7 L (37.2-46.3) % MCHC 31.1 L (32.0-37.0) g/dL BUN 30.7 H (9.0-27.0) mg/dL Est GFR (CKD-EPI) 48 L (>=60) BUN/Creatinine Ratio 25.58 H (12.00-20.00) Ratio Glucose 137 H (70-110) mg/dL
[2023-10-04] MEDS ORDERED: DEXAMETHASONE SOD PHOSPHATE 4 MG/ML 1 ML VIAL IV ONE (11:58)
[2023-10-04] MEDS ORDERED: ONDANSETRON 4 MG/2 ML VIAL IVP ONE ×2 (11:58→12:42)
[2023-10-04] MEDS ORDERED: HYDROmorphone 0.5 MG/0.5 ML SYRINGE IVP PRN (11:58)
[2023-10-04] MEDS: LACTATED RINGERS 1,000 ML IV SCH ×2 (12:21→12:59)
[2023-10-04] MEDS ORDERED: MIDAZOLAM 2 MG/2 ML VIAL IVP ONE ×2 (12:41→12:57)
[2023-10-04] MEDS ORDERED: ROCURONIUM 10 MG/ML (5 ML VIAL) IV ONE (12:55)
[2023-10-04] MEDS ORDERED: PHENYLEPHRINE-0.9% NACL SYG 1,000 MCG/10 ML SYRINGE ONE (12:55)
[2023-10-04] MEDS ORDERED: NEOSTIGMINE 1 MG/ML 10 ML VIAL ONE (12:55)
[2023-10-04] MEDS ORDERED: HYDROmorphone (PF) 1 MG/ML ONE (12:55)
[2023-10-04] MEDS ORDERED: LIDOCAINE 1% INJ 10MG/ML (20 ML MDV) ONE (12:55)
[2023-10-04] MEDS ORDERED: DEXAMETHASONE SOD PHOSPHATE 4 MG/ML 1 ML VIAL ONE (12:55)
[2023-10-04] MEDS ORDERED: GLYCOPYRROLATE 0.2 MG/ML 2 ML VIAL ONE (12:55)
[2023-10-04] MEDS ORDERED: ROPIVACAINE 5 MG/ML 30 ML VIAL ONE (12:55)
[2023-10-04] MEDS ORDERED: SUCCINYLCHOLINE CHLORIDE 200 MG/10 ML VIAL IV ONE (12:55)
[2023-10-04] MEDS ORDERED: ePHEDrine 50 MG/ML 1 ML VIAL ONE (12:55)
[2023-10-04] MEDS ORDERED: fentaNYL (PF) 50 MCG/ML 2 ML AMP ONE (12:55)
[2023-10-04] MEDS ORDERED: SODIUM CHLORIDE 0.9% (PF) 10 ML VIAL ONE (12:55)
[2023-10-04] MEDS ORDERED: PROPOFOL 10 MG/ML 20 ML VIAL IV ONE (12:55)
--- NOTE | 2023-10-04 12:56 | P.ANPRN ---
Procedure Note - Anesthesia - Nerve Block Performed Left Adductor Canal Single Time Out Performed: Yes Date of Procedure: 10/04/23 Procedure Start Time: 12:40 Procedure Stop Time: 12:45 Location of Patient: PreOp Indication: Acute Post-Operative Pain, Requested by Surgeon Sedation Type: Sedate with meaningful contact maintained Preparation: Sterile Prep Position: Supine Needle Types: Pajunk Needle Gauge: 21 Ultrasound used to visualize needle placement: Yes Ultrasound used to observe medication spread: Yes Injectate: 0.5% Ropivacaine (see comment for volume) (20 ml + 10 ml NS + 4 mg dexamethason) Blood Aspirated: No Pain Paresthesia on Injection Noted: No Resistance on Injection: Normal Image Stored and Saved: Yes Events: Uneventful and Well Tolerated
--- NOTE | 2023-10-04 12:58 | P.ANPRN ---
Procedure Note - Anesthesia - Nerve Block Performed Left Popliteal Single Time Out Performed: Yes Date of Procedure: 10/04/23 Procedure Start Time: 12:46 Procedure Stop Time: 12:53 Location of Patient: PreOp Indication: Acute Post-Operative Pain, Requested by Surgeon Sedation Type: Sedate with meaningful contact maintained Preparation: Sterile Prep Position: Supine Needle Types: Pajunk Needle Gauge: 21 Ultrasound used to visualize needle placement: Yes Ultrasound used to observe medication spread: Yes Injectate: 0.5% Ropivacaine (see comment for volume) (20 ml + 10 ml NS + 4 mg dexamethasone) Blood Aspirated: No Pain Paresthesia on Injection Noted: No Resistance on Injection: Normal Image Stored and Saved: Yes Events: Uneventful and Well Tolerated
[2023-10-04] MEDS ORDERED: ceFAZolin 1,000 MG in SODIUM CHLORIDE 0.9% 1,000 ML IRRIGATION ONE (13:47)
--- NOTE | 2023-10-04 15:02 | FL ---
EXAMINATION TYPE: FL guidance operating room, XR ankle complete LT Intraoperative/procedural fluorosc opic services were provided. Total fluoroscopy time is 53 seconds with a total of 4 submitted images to PACS. Please see the operative/procedural note for further details. DAP: 0.7428 mGym2
--- NOTE | 2023-10-04 15:29 | P.OP ---
Date of Procedure: 10/04/23 Preoperative Diagnosis: 1. Displaced left bimalleolar ankle fracture 2. Ruptured syndesmosis left ankle Postoperative Diagnosis: 1. Same 2. Same Procedure(s) Performed: 1. Open reduction with internal fixation left bimalleolar ankle fracture 2. Open reduction with internal fixation left syndesmotic rupture Implants: Eric precontoured lateral malleolar plate with 3.5 mm locking and nonlocking screws Tracker 4.0 mm cannulated partially threaded screws Anesthesia: RICARDO Surgeon: Srini Murry Estimated Blood Loss (ml): 50 Pathology: none sent Condition: stable Disposition: PACU Description of Procedure: Prior to the patient being brought to the operating room, anesthesia administered a nerve block on the right lower extremity. The patient was brought into the operative room and placed on table in supine position. Timeout was taken to confirm correct patient identifiers, correct laterality of surgery, and correct procedure. Once all staff in the room were in agreement with the timeout, the patient was induced and placed under general anesthesia. A well- padded tourniquet was placed on the right thigh and a wedge underneath the right hip to internally rotate the right leg. The right leg was then prepped and draped in usual manner. The leg was tingling irrigated with an Esmarch bandage and then the tourniquet was inflated to 250 mmHg. Inches directed over the lateral malleolus where a straight linear incision was made along the midline. The incision was deepened under the subcutaneous tissue careful to identify, avoid, and retract any neurovascular structures and cauterize any bleeding vessels. Dissection was carried down to level of the periosteum. A linear periosteal incision was madetissues were reflected anteriorly and posteriorly to expose the fracture. The soft tissue and hematoma were evacuated from between the fracture fragments. Bone reduction forceps were utilized to rotate and bring the fracture back into alignment. Once the fracture was aligned was clamped in place. Fluoroscopy confirmed the proper position of the fracture on AP and lateral views. 3.5 mm nonlocking cortical screw was then used as an interfragmentary screw, utilizing lag technique, across the fracture site. There was excellent bone purchase with the screw and the fracture was compressed well. Fluoroscopy confirmed the proper placement of the as well as maintain alignment of the fracture. A [place] precontoured lateral malleolar plate was then positioned and adjusted under fluoroscopy until it was aligned appropriately. The plate was then temporarily fixated. Locking screws were placed in the most proximal 2 holes of the plate. Distal locking screws were then placed into the lateral malleolus. Drilling for the screws is done under direct fluoroscopic visualization so that the drill bit did not enter the lateral gutter of the ankle joint. The distal screw was a compression screw to contour the plate and the other 2 screws were locking screws. Fluoroscopic imaging showed that the plate was properly aligned and the fracture well reduced. With the ankle in maximum dorsiflexion and slight inversion, a periarticular clamp was placed across ankle joint to keep the syndesmosis reduced and also allow the medial malleolar fracture to be nearly anatomically aligned. Then attention was directed over the medial malleolus where an incision was made over the fracture. The incision was deepened down to the subcutaneous tissue careful to identify, avoid, and retract any neurovascular structures and cauterize any bleeding vessels. Deeper dissection revealed that the periosteum and deltoid ligament were significantly frayed and the fracture was well visualized. Bony fragments and interposed soft tissue were removed between the fracture fragments. A bone reduction forcep was used to clamp the distal fracture fragment and stabilize it against the tibia. Fluoroscopy was used to adjust position of the fracture until it was anatomically aligned. Guidewires for 4.0 mm cannulated screws were placed at the tip of the medial malleolus and advanced across the fracture and posteriorly so that the screws remained perpendicular to the fracture line. A second wire was placed anterior to the first in the same direction across the fracture site. Fluoroscopic imaging showed that the wires were across the fracture and avoiding the ankle joint both on AP and lateral views. Small stab incisions were made through the skin at the entry point of the wires. The screws were placed over the wires and advanced until the heads engaged the medial malleolus and compressed the fracture. A periarticular clamp was removed and the ankle was stressed to make sure that the fracture fragment was stable and that there was no motion. Under live fluoroscopic visualization external rotation and eversion of the ankle were done to assess the syndesmosis. It was noted that there was excessive motion of the syndesmosis as well as gapping of the medial gutter. The decision was made to use 2 syndesmotic screws. The proper holes in the plate were chosen for the placement of the screw. Drilling was done through 3 cortices, then a cortical nonlocking screw was inserted. The screw was tightened with the ankle maximally dorsiflexed. The screw was only tightened until it was firmly against the plate and not overtightened. Once both screws were in place, the clamp was removed and stress testing was performed again under fluoroscopy, and it showed that there was no instability of syndesmosis and no abnormal gapping of the medial gutter. The wounds were thoroughly irrigated with antibiotic saline using a pulse receiving checker. Then the wounds were thoroughly irrigated with Irrisept. Deep closure was done with 2-0 Vicryl. Subcu closure was done with 4-0 Monocryl. Skin closure was done with leticia. An Arthrex jumpstart dressing was placed over the incision and then a bulky dry dressings applied to the right ankle. The tourniquet was released and capillary refill return to all digits on the right foot. Then the patient was placed in a well-padded, well molded posterior mold/sugar tong splint. The ankle was held in neutral dorsiflexion and slight inversion as it dried. Once the splint was dried, anesthesia was reversed and the patient was taken recovery with vital signs stable.
[2023-10-04] MEDS: ATORVASTATIN 80 MG TAB PO SCH (22:16)
[2023-10-04] MEDS: EZETIMIBE 10 MG TAB PO SCH (22:16)
[2023-10-05] MEDS: SYMBICORT 80-4.5 MCG INHALER INHALATION SCH (07:57)
[2023-10-05] MEDS: IPRATROPIUM 0.5 MG/2.5 ML NEBU INHALATION SCH ×3 (07:57→15:04)
[2023-10-05 09:00] LABS: BUN/Creat Ratio 29.22 Ratio (12.00-20.00); Blood Urea Nitrogen 26.3 mg/dL (9.0-27.0); Carbon Dioxide 23.7 mmol/L (21.6-31.8); Chloride 102 mmol/L (96-109); Glucose 151 mg/dL (70-110); Sodium 137 mmol/L (135-145)
[2023-10-05] MEDS: DILTIAZEM CD 120 MG CAP.ER.24H PO SCH (09:08)
[2023-10-05] MEDS: PARoxetine 10 MG TAB PO SCH (09:08)
[2023-10-05] MEDS: CHOLECALCIFEROL 25 MCG (1000 IU) TABLET PO SCH (09:08)
[2023-10-05] MEDS: METOPROLOL SUCCINATE (ER) 25 MG TAB.ER.24H PO SCH (09:08)
[2023-10-05] MEDS: lisinopriL 20 MG TAB PO SCH (09:08)
[2023-10-05 09:30] LABS: Basophils # (A) 0.02 X 10*3/uL (0.00-0.10); Basophils % (A) 0.1 %; Eosinophils # (A) 0 X 10*3/uL (0.04-0.35); Eosinophils % (A) 0 %; HCT 35.3 % (37.2-46.3); HGB 10.9 g/dL (12.0-15.0); Lymphocytes # (A) 1.02 X 10*3/uL (0.90-5.00); Lymphocytes % (A) 7.5 %; MCH 29.2 pg (27.0-32.0); MCHC 30.9 g/dL (32.0-37.0); MCV 94.6 FL (80.0-97.0); Mean Platelet Volume 11.6 FL (9.5-12.2); Monocytes # (A) 0.64 X 10*3/uL (0.20-1.00); Monocytes % (A) 4.7 %; NRBC Per 100 WBC 0 X 10*3/uL (0.00-0.01); Neutrophils # (A) 11.88 X 10*3/uL (1.80-7.70); Neutrophils % (A) 87.1 %; Platelet Count 263 X 10*3/uL (140-440); RBC 3.73 X 10*6/uL (4.10-5.20); RDW 13.4 % (11.5-14.5); WBC 13.64 X 10*3/uL (4.50-10.00)
[2023-10-05] MEDS: LACTATED RINGERS 1,000 ML IV SCH (09:32)
[2023-10-05] MEDS ORDERED: polyethylene glycoL 3350 17 GM POWD.PACK PO STA (11:13)
[2023-10-05] MEDS ORDERED: SENNOSIDES 8.6 MG TAB PO SCH (11:15)
--- NOTE | 2023-10-05 11:37 | P.PN ---
Subjective Progress Note Date: 10/05/23 Subjective: Patient seen and examined at bedside. No acute events overnight. No bowel movements in 5 days. Denies any chest pain, shortness of breath, abdominal pain, nausea, vomiting, or urinary complaints Pertinent positives and negatives as discussed above, a complete review of systems was performed and all other systems are negative. Vitals Signs Reviewed. General: nontoxic, no distress, appears at stated age Derm: warm, dry, dressing clean, dry, intact Eyes: EOMI, no lid lag, anicteric sclera, pupils equal round reactive to light ENT: Nose and ears atraumatic Cardiovascular: S1S2 reg, no murmur, no edema Lungs: clear to auscultation bilateral, no rhonchi, no rales, no wheeze, no acce ssory muscle use Abdominal: soft, nontender to palpation, no guarding Ext: no gross muscle atrophy, no contractures Neuro: CN II-XII grossly intact, decreased sensation left toes Psych: Alert, oriented, appropriate affect Data Reviewed Today: Pertinent Labs: WBC 13.64, hemoglobin 10.9, creatinine 0.9, blood sugars 151 Imaging: No new imaging Assessment and Plan: Left ankle fracture status post surgery Pain control with oral [place] as needed, IV Dilaudid as needed,IV morphine as needed Given 1 dose of MiraLAX now, also started on scheduled senna 8.6 twice daily Lovenox subcu 40 for DVT prophylaxis added Coronary artery disease status post stenting to the LAD Hypertension Dyslipidemia COPD, not in exacerbation -Restarted aspirin 81 mg daily, Plavix 75 mg daily -Lipitor 80 mg at night, Zetia 10 mg at night -Metoprolol 25 mg daily, lisinopril 20 mg daily, Cardizem 120 daily -Continue Symbicort twice daily, Atrovent 4 times daily, DuoNeb as needed 4 times daily Patient is medically optimized for discharge Thank you for allowing us to participate in the care of this pleasant patient. Do not hesitate to contact us with questions. Someone can be reached from the [facility] hospitalist group all hours of the day at [phone] or via perfect serve. Objective - Vital Signs Vital signs: Vital Signs Temp 97.8 F 10/05/23 07:39 Pulse 84 10/05/23 11:31 Resp 17 10/05/23 07:39 BP 109/67 10/05/23 07:39 Pulse Ox 99 10/05/23 07:39 FiO2 Intake & Output 10/04/23 10/05/23 10/05/23 18:59 06:59 18:59 Intake Total 951 590 50 Output Total 20 Balance 931 590 50 Weight 99.79 kg Intake: IV 951 Intake, IV Titration 50 Amount ceFAZolin 2 gm In Sodium 50 Chloride 0.9% 50 ml @ 100 mls/hr IVPB ONCE PRN Rx# :[id number] Oral 590 Output: Estimated Blood Loss 20 Other: Voiding Method Toilet # Voids 1 1 - Labs CBC & Chem 7: 10/05/23 05:11 10/05/23 05:11 Labs: Abnormal Lab Results - Last 24 Hours (Table) 10/05/23 10/05/23 Range/Units 05:11 05:11 WBC 13.64 H (4.50-10.00) X 10*3/uL RBC 3.73 L (4.10-5.20) X 10*6/uL Hgb 10.9 L (12.0-15.0) g/dL Hct 35.3 L (37.2-46.3) % MCHC 30.9 L (32.0-37.0) g/dL Immature Gran # 0.08 H (0.00-0.04) X 10*3/uL Neutrophils # 11.88 H (1.80-7.70) X 10*3/uL Eosinophils # 0 L (0.04-0.35) X 10*3/uL BUN/Creatinine Ratio 29.22 H (12.00-20.00) Ratio Glucose 151 H (70-110) mg/dL
[2023-10-05] MEDS ORDERED: ENOXAPARIN 40 MG/0.4 ML SYRINGE SQ SCH (12:00)
--- NOTE | 2023-10-05 12:48 | P.PN ---
Subjective Progress Note Date: 10/05/23 Principal diagnosis: Displaced left bimalleolar ankle fx with syndesmosis disruption Patient is POD#1 S/P ORIF left ankle fracture. Pain is minimal and controlled with oral [place]. Denies N/V/F/C, calf pain or SOB Objective - Vital Signs Vital signs: Vital Signs Temp 97.8 F 10/05/23 07:39 Pulse 88 10/05/23 11:43 Resp 17 10/05/23 07:39 BP 109/67 10/05/23 07:39 Pulse Ox 99 10/05/23 07:39 FiO2 Intake & Output 10/04/23 10/05/23 10/05/23 18:59 06:59 18:59 Intake Total 951 590 50 Output Total 20 Balance 931 590 50 Weight 99.79 kg Intake: IV 951 Intake, IV Titration 50 Amount ceFAZolin 2 gm In Sodium 50 Chloride 0.9% 50 ml @ 100 mls/hr IVPB ONCE PRN Rx# :[id number] Oral 590 Output: Estimated Blood Loss 20 Other: Voiding Method Toilet Toilet # Voids 1 1 - Exam Splint in place on left L/E. Brisk capillary refill to all digits left foot. N ormal sensation in left foot digits. - Labs CBC & Chem 7: 10/05/23 05:11 10/05/23 05:11 Labs: Abnormal Lab Results - Last 24 Hours (Table) 10/05/23 10/05/23 Range/Units 05:11 05:11 WBC 13.64 H (4.50-10.00) X 10*3/uL RBC 3.73 L (4.10-5.20) X 10*6/uL Hgb 10.9 L (12.0-15.0) g/dL Hct 35.3 L (37.2-46.3) % MCHC 30.9 L (32.0-37.0) g/dL Immature Gran # 0.08 H (0.00-0.04) X 10*3/uL Neutrophils # 11.88 H (1.80-7.70) X 10*3/uL Eosinophils # 0 L (0.04-0.35) X 10*3/uL BUN/Creatinine Ratio 29.22 H (12.00-20.00) Ratio Glucose 151 H (70-110) mg/dL Assessment and Plan (1) Displaced bimalleolar fracture of left ankle Current Visit: Yes Status: Acute Code(s): S82.842A - DISPLACED BIMALLEOLAR FRACTURE OF LEFT LOWER LEG, INIT SNOMED Code(s): 525011071 Plan: Planned D/c to rehab facility Post-op orders in chart Patient to F/U with Dr. Murry Oct.16
--- NOTE | 2023-10-05 12:55 | P.DS ---
Providers Date of admission: 10/02/23 19:55 Expected date of discharge: 10/05/23 Attending physician: DO Srini Hooks DPM Consults: 10/03/23 09:39 Consult Physician Routine Consulting Provider: Kyler Gerard Consult Reason/Comments: pre-op clearance Do you want consulting provider notified?: Yes 10/04/23 08:54 Consult Physician Routine Consulting Provider: Cristopher Nixon Consult Reason/Comments: Medical mgnt Do you want consulting provider notified?: Already Contacted Primary care physician: García Christy - Discharge Diagnosis(es) (1) Displaced bimalleolar fracture of left ankle Patient admitted on 10-02-23 for surgical repair of left ankle fracture and anticipated D/C to rehab facility Patient underwent ORIF of left ankle fracture on 10-04-23 Admission course was uneventful F/U visit on 10-05-23: patient had little pain on the left L/E. Pain controlled with oral [place]. Denied N/V/F/C, calf pain or SOB Patient had consults with PT/OT, where patient D/C to rehab was deemed appropriate [facility] Current Visit: Yes Status: Acute Onset Date: ~10/01/23 Hospital Course: uneventful Procedures: ORIF of left ankle fx on 10-04-23 Patient Condition at Discharge: Good Plan - Discharge Summary New Discharge Prescriptions: New Sennosides [Senokot] 8.6 mg PO BID #0 tab Continue lisinopriL [Zestril] 20 mg PO DAILY Ipratropium-Albuterol Nebulize [Duoneb 0.5 mg-3 mg/3 ml Soln] 3 ml INHALATION RT-QID PRN PRN Reason: Shortness Of Breath Fluticasone/Umeclidin/Vilanter [Trelegy Ellipta 100-62.5-25] 1 puff INHALATION RT-DAILY Clopidogrel [Plavix] 75 mg PO DAILY tab Ezetimibe [Zetia] 10 mg PO HS Atorvastatin [Lipitor] 80 mg PO HS PARoxetine HCL [Paxil] 30 mg PO DAILY Metoclopramide [Reglan] 10 mg PO ACHS PRN PRN Reason: Nausea dilTIAZem HCL [Cardizem CD] 120 mg PO DAILY Metoprolol Succinate (ER) [Toprol XL] 25 mg PO DAILY Aspirin [[place] Aspirin EC] 81 mg PO DAILY HYDROcodone/APAP 5-325MG [[place] 5-325] 1 - 2 tab PO Q4HR PRN PRN Reason: Pain Docusate [Colace] 100 mg PO TID PRN PRN Reason: Constipation Triamcinolone 0.1% Cream [Kenalog 0.1% Cream] 1 applicatio TOPICAL BID PRN PRN Reason: PSORIASIS Cholecalciferol [Vitamin D3 (25 Mcg = 1000 Iu)] 25 mcg PO DAILY Discontinued Ibuprofen [Motrin] 800 mg PO Q8H PRN PRN Reason: Pain Or Fever > 100.5 No Action Acetaminophen Tab [Tylenol Tab] 1,000 mg PO Q6HR PRN PRN Reason: Pain Or Fever > 100.5 Discharge Medication List Aspirin [[place] Aspirin EC] 81 mg PO DAILY 06/07/22 [History] Fluticasone/Umeclidin/Vilanter [Trelegy Ellipta 100-62.5-25] 1 puff INHALATION RT-DAILY 06/07/22 [History] Ipratropium-Albuterol Nebulize [Duoneb 0.5 mg-3 mg/3 ml Soln] 3 ml INHALATION RT-QID PRN 06/07/22 [History] Metoprolol Succinate (ER) [Toprol XL] 25 mg PO DAILY 06/07/22 [History] dilTIAZem HCL [Cardizem CD] 120 mg PO DAILY 06/07/22 [History] lisinopriL [Zestril] 20 mg PO DAILY 06/07/22 [History] Clopidogrel [Plavix] 75 mg PO DAILY tab 06/09/22 [Rx] Acetaminophen Tab [Tylenol Tab] 1,000 mg PO Q6HR PRN 10/02/23 [History] Atorvastatin [Lipitor] 80 mg PO HS 10/02/23 [History] Cholecalciferol [Vitamin D3 (25 Mcg = 1000 Iu)] 25 mcg PO DAILY 10/02/23 [History] Docusate [Colace] 100 mg PO TID PRN 10/02/23 [History] Ezetimibe [Zetia] 10 mg PO HS 10/02/23 [History] HYDROcodone/APAP 5-325MG [[place] 5-325] 1 - 2 tab PO Q4HR PRN 10/02/23 [History] Metoclopramide [Reglan] 10 mg PO ACHS PRN 10/02/23 [History] PARoxetine HCL [Paxil] 30 mg PO DAILY 10/02/23 [History] Triamcinolone 0.1% Cream [Kenalog 0.1% Cream] 1 applicatio TOPICAL BID PRN 10/02/23 [History] Sennosides [Senokot] 8.6 mg PO BID #0 tab 10/05/23 [Rx] Follow up Appointment(s)/Referral(s): García Christy MD [Primary Care Provider] - 1-2 days Srini Murry DPM [Doctor of Osteopathic Medicine] - 1 Week Patient Instructions/Handouts: *Surgery [facility] - ([place]) Discharge Instructins Foot Surgery Activity/Diet/Wound Care/Special Instructions: 1.Keep the splint clean, dry, and intact. Do Not remove 2. Apply ice behind knee of the surgical extremity 3. Keep the surgical leg elevated when resting 4. Non-weightbearing on the surgical side 5. Pain medications as prescribed Discharge Disposition: TRANSFER TO SNF/ECF
[2023-10-05 13:27] VITALS: BP 117/61; RESP 18; TEMP 98
[2023-10-05] MEDS: HYDROcodone/APAP 5-325MG 1 EACH TAB PO PRN (14:56)
[2023-10-05 15:10] VITALS: PULSE 84
[2023-10-06] MEDS ORDERED: ASPIRIN 81 MG PO SCH (09:00)
[2023-10-06] MEDS ORDERED: CLOPIDOGREL 75 MG TAB PO SCH (09:00)
== END 2023-10-05 17:19 | DRG 493 ==
LOC: EC 17:06 → 4SSUR 19:55 → 5NMEDONC 10-03 17:07
PROVIDERS: ADMIT Orthopaedic Surgery; ATTEND Orthopaedic Surgery Hand Surgery
PROC: 0QSK04Z Reposition Left Fibula with Internal Fixation Device, Open Approach (ICD-10-PCS; 2023-10-04)
PROC: 3E0T3BZ Introduction of Anesthetic Agent into Peripheral Nerves and Plexi, Percutaneous Approach (ICD-10-PCS; 2023-10-04)
PROC: 0QSH04Z Reposition Left Tibia with Internal Fixation Device, Open Approach (ICD-10-PCS; principal; 2023-10-04 13:00)
DX: S82.842A Displaced bimalleolar fracture of left lower leg, initial encounter for closed fracture (principal); D62 Acute posthemorrhagic anemia; E78.5 Hyperlipidemia, unspecified; I25.10 Atherosclerotic heart disease of native coronary artery without angina pectoris; F41.9 Anxiety disorder, unspecified; S93.432A Sprain of tibiofibular ligament of left ankle, initial encounter; I49.3 Ventricular premature depolarization; J44.9 Chronic obstructive pulmonary disease, unspecified; W00.0XXA Fall on same level due to ice and snow, initial encounter; I10 Essential (primary) hypertension; M19.90 Unspecified osteoarthritis, unspecified site; Z79.02 Long term (current) use of antithrombotics/antiplatelets; Z79.82 Long term (current) use of aspirin; Z79.899 Other long term (current) drug therapy; Z87.891 Personal history of nicotine dependence; Z95.5 Presence of coronary angioplasty implant and graft
CPT/HCPCS: 36415; 64445; 64447; 80048; 80053; 85025; 85027; 85610; 85730; 93005; 94640; 99285

== ENCOUNTER → 2023-11-07 | Outpatient (CLI) | payer MEDICARE, OTHER ==
--- NOTE | 2023-11-08 18:04 | US ---
EXAMINATION TYPE: US arterial LE single level DATE OF EXAM: 11/07/2023 12:52 PM CLINICAL INDICATION: Female, 73 years old with history of L97.909 NON-PRS CHRONIC ULC UNSP; Ulcer. History of: Smoker: Previous Hypertension: Yes Diabetic: No Hyperlipidemia: Yes TIA/CVA: No Previous Vascular Surgery: Hx cardiac stent. CAD: Patient has had cardiac stents placed. AK: No Vascular Ulcers: Medial and lateral left ankle ulcers. Claudication: ?? Gangrene: No Doppler Waveforms: Right: Biphasic Left: Biphasic Right Brachial Pressure: 170 Left Brachial Pressure: 156 Ankle-Brachial Indices: Right: 1.01 Left: 1.06 Toe Brachial Indices: Right: 0.50 Left: 0.51 IMPRESSION: 1. Normal ankle brachial indices. 2. Toe brachial indices suggestive of severe disease.
== END | disposition home or self-care (01) ==
LOC: RADUSWWP 12:16
PROVIDERS: ATTEND Family Medicine
DX: L97.909 Non-pressure chronic ulcer of unspecified part of unspecified lower leg with unspecified severity (principal); Z87.891 Personal history of nicotine dependence
CPT/HCPCS: 93922

== ENCOUNTER → 2024-01-26 | Outpatient (CLI) | payer MEDICARE ==
[2024-01-26 19:39] LABS: ALT 13 U/L (8-44); AST 20 U/L (13-35); Chol/HDL Ratio 4.34 Ratio; LDL Cholesterol,Calculated 113.5 mg/dL (0.0-131.0)
== END | disposition home or self-care (01) ==
LOC: LABWHC1 13:15
PROVIDERS: ATTEND Internal Medicine Interventional Cardiology
DX: E78.00 Pure hypercholesterolemia, unspecified (principal)
CPT/HCPCS: 36415; 80061; 84450; 84460

== ENCOUNTER → 2024-08-07 | Outpatient (CLI) | payer MEDICARE, OTHER ==
--- NOTE | 2024-08-12 08:54 | MM ---
Reason for Exam: Screening (asymptomatic). Last mammogram was performed 1 year(s) and 1 month(s) ago. Patient History: Menarche at age 14. First Full-Term at age 23. Postmenopausal. Daughter had breast cancer, age 46. Risk Values: Jo Ann 5 year model risk: 3.4%. NCI Lifetime model risk: 8.6%. Prior Study Comparison: 06/28/2016 Screening Mammogram, [facility]. 01/03/2019 Screening Mammogram, [facility]. 06/15/2021 Bilateral Screening Mammogram, [facility]. 07/11/2023 Bilateral MG 3D screening mammo w/cad, [facility]. Tissue Density: There are scattered areas of fibroglandular density. Findings: Analyzed By CAD. Right breast: There is no suspicious group of microcalcifications or new suspicious mass. Left breast: There is no suspicious group of microcalcifications or new suspicious mass. Overall Assessment: Negative, BI-RAD 1 Management: Screening Mammogram of both breasts in [address] [facility] will attempt to contact patient to return for supplemental views and ultrasound if indicated. Patient should continue monthly self-breast exams. A clinical breast exam by your physician is recommended on an annual basis. This exam should not preclude additional follow-up of suspicious palpable abnormalities. Note on Jo Ann scores and lifetime risk: 1. A Jo Ann score greater than 3% is considered moderate risk. If this is the case, consider specialist referral to assess eligibility for a risk reducing agent. 2. If overall lifetime risk for the development of breast cancer is 20% or higher, the patient may qualify for future screening with alternating mammogram and breast MRI. [facility], , 08/12/2024 8:50 AM. Electronically signed and approved by: Guido Ragsdale DO
== END | disposition home or self-care (01) ==
LOC: RADMAMWWP 11:47
PROVIDERS: ATTEND Family Medicine
DX: Z12.31 Encounter for screening mammogram for malignant neoplasm of breast (principal); Z80.3 Family history of malignant neoplasm of breast; Z78.0 Asymptomatic menopausal state; R92.323 Mammographic fibroglandular density, bilateral breasts
CPT/HCPCS: 77063; 77067

== ENCOUNTER 2024-12-26 18:45 | Emergency (ER) | payer MEDICARE, OTHER ==
--- NOTE | 2024-12-26 19:19 | ED ---
Fall HPI - General Chief Complaint: Fall Stated Complaint: Fall Time Seen by Provider: 12/26/24 19:19 Source: patient, family, RN notes reviewed Mode of arrival: EMS Limitations: no limitations - History of Present Illness Initial Comments: 74-year-old female presenting the ER for evaluation of a fall. Patient states she was walking down a flight of steps holding onto the railing when she accidentally slipped missing a step causing her to fall backwards. She reports she hit her head on a step. She is unsure of LOC. Patient does take a baby aspirin daily denies blood thinners. Patient denying any current pain. She denies any dizziness, lightheadedness, chest pain or shortness of breath prior to fall. Patient denies any other injuries or complaints at this time. - Related Data Home Medications Medication Instructions Recorded Confirmed Aspirin [[place] Aspirin EC] 81 mg PO DAILY 06/07/22 10/02/23 Fluticasone/Umeclidin/Vilanter 1 puff INHALATION RT-DAILY 06/07/22 10/02/23 [Trelegy Ellipta 100-62.5-25] Ipratropium-Albuterol Nebulize 3 ml INHALATION RT-QID PRN 06/07/22 10/02/23 [Duoneb 0.5 mg-3 mg/3 ml Soln] Metoprolol Succinate (ER) [Toprol 25 mg PO DAILY 06/07/22 10/02/23 XL] dilTIAZem HCL [Cardizem CD] 120 mg PO DAILY 06/07/22 10/02/23 lisinopriL [Zestril] 20 mg PO DAILY 06/07/22 10/02/23 Acetaminophen Tab [Tylenol Tab] 1,000 mg PO Q6HR PRN 10/02/23 10/02/23 Atorvastatin [Lipitor] 80 mg PO HS 10/02/23 10/02/23 Cholecalciferol [Vitamin D3 (25 25 mcg PO DAILY 10/02/23 10/02/23 Mcg = 1000 Iu)] Docusate [Colace] 100 mg PO TID PRN 10/02/23 10/02/23 Ezetimibe [Zetia] 10 mg PO HS 10/02/23 10/02/23 HYDROcodone/APAP 5-325MG [[place] 1 - 2 tab PO Q4HR PRN 10/02/23 10/02/23 5-325] Metoclopramide [Reglan] 10 mg PO ACHS PRN 10/02/23 10/02/23 PARoxetine HCL [Paxil] 30 mg PO DAILY 10/02/23 10/02/23 Triamcinolone 0.1% Cream [Kenalog 1 applicatio TOPICAL BID PRN 10/02/23 10/02/23 0.1% Cream] Previous Rx's Medication Instructions Recorded Clopidogrel [Plavix] 75 mg PO DAILY tab 06/09/22 Sennosides [Senokot] 8.6 mg PO BID #0 tab 10/05/23 Allergies Allergy/AdvReac Type Severity Reaction Status Date / Time No Known Allergies Allergy Verified 10/02/23 21:22 Review of Systems ROS Statement: Those systems with pertinent positive or pertinent negative responses have been documented in the HPI. ROS Other: All systems not noted in ROS Statement are negative. Past Medical History Past Medical History: Coronary Artery Disease (CAD), COPD, Hyperlipidemia, Hypertension, Osteoarthritis (OA) Additional Past Medical History / Comment(s): recent stress test History of Any Multi-Drug Resistant Organisms: None Reported Past Surgical History: Section, Heart Catheterization, Orthopedic Surgery Additional Past Surgical History / Comment(s): recent heart cath 06/02 @[facility], right CTS Past Anesthesia/Blood Transfusion Reactions: No Reported Reaction Past Psychological History: Anxiety Smoking Status: Former smoker Past Alcohol Use History: None Reported General Exam Limitations: no limitations General appearance: alert, in no apparent distress Head exam: Present: normocephalic, other (Hematoma left parietal scalp. No overlying wounds or laceration) Eye exam: Present: normal appearance, PERRL, EOMI. Absent: scleral icterus, conjunctival injection, periorbital swelling Pupils: Present: normal accommodation ENT exam: Present: normal oropharynx, mucous membranes moist, TM's normal bilaterally, other (No raccoon eyes, Eli sign or hemotympanums) Neck exam: Present: normal inspection. Absent: tenderness, meningismus, lymphadenopathy Respiratory exam: Present: normal lung sounds bilaterally. Absent: respiratory distress, wheezes, rales, rhonchi, stridor Cardiovascular Exam: Present: regular rate, normal rhythm, normal heart sounds. Absent: systolic murmur, diastolic murmur, rubs, gallop, clicks Extremities exam: Present: normal inspection, full ROM, normal capillary refill. Absent: tenderness, pedal edema, joint swelling, calf tenderness Back exam: Present: normal inspection Neurological exam: Present: alert, oriented X3, CN II-XII intact, other (GCS 15) Skin exam: Present: warm, dry, intact, normal color. Absent: rash Course Vital Signs 12/26/24 12/26/24 18:47 21:22 Temperature 98.4 F 98.1 F Pulse Rate 110 H 99 Respiratory 22 20 Rate Blood Pressure 150/88 143/75 O2 Sat by Pulse 97 98 Oximetry - Reevaluation(s) Reevaluation #1: 12/26/24 21:03 Patient reevaluated. C-spine cleared and c-collar removed. Patient in no signs of acute distress. Patient ambulated to bathroom without difficulty. Medical Decision Making - Medical Decision Making Was pt. sent in by a medical professional or institution (, PA, GRAVURE PRESS SET UP OPERATOR, urgent care, hospital, or care home...) When possible be specific @ -No Did you speak to anyone other than the patient for history (EMS, parent, family, police, friend...)? What history was obtained from this source @ -No Did you review nursing and triage notes (agree or disagree)? Why? @ -I reviewed and agree with nursing and triage notes Were old charts reviewed (outside hosp., previous admission, EMS record, old EKG, old radiological studies, urgent care reports/EKG's, care home records)? Report findings @ -No old charts were reviewed Differential Diagnosis (chest pain, altered mental status, abdominal pain women, abdominal pain men, vaginal bleeding, weakness, fever, dyspnea, syncope, headache, dizziness, GI bleed, back pain, seizure, CVA, palpatations, mental health, musculoskeletal)? @ -Fracture, dislocation, contusion, hematoma, intracranial hemorrhage, concuss ion, abrasion, laceration this list does not like to be all-inclusive EKG interpreted by me (3pts min.). @ -None done X-rays interpreted by me (1pt min.). @ -None done CT interpreted by me (1pt min.). @ -CT brain C-spine showing a large left posterior scalp hematoma without evidence of acute intracranial abnormality. No acute fractures or subluxations of cervical spine. U/S interpreted by me (1pt. min.). @ -None done What testing was considered but not performed or refused? (CT, X-rays, U/S, labs)? Why? @ -None What meds were considered but not given or refused? Why? @ -None Did you discuss the management of the patient with other professionals (professionals i.e. DrUrmila, PA, GRAVURE PRESS SET UP OPERATOR, lab, RT, psych nurse, social work professor, nurse special, teacher, property utilization officer, oil field caser)? Give summary @ -No Was smoking cessation discussed for >3mins.? @ -No Was critical care preformed (if so, how long)? @ -No Were there social determinants of health that impacted care today? How? (Homelessness, low income, unemployed, alcoholism, drug addiction, transportation, low edu. Level, literacy, decrease access to med. care, usp, rehab)? @ -No Was there de-escalation of care discussed even if they declined (Discuss DNR or withdrawal of care, Hospice)? DNR status @ -No What co-morbidities impacted this encounter? (DM, HTN, Smoking, COPD, CAD, Cancer, CVA, ARF, Chemo, Hep., AIDS, mental health diagnosis, sleep apnea, morbid obesity)? @ -None Was patient admitted / discharged? Hospital course, mention meds given and route, prescriptions, significant lab abnormalities, going to OR and other pertinent info. @ -Discharge. 74-year-old female presented to the ER via EMS for evaluation of a fall. Upon rooming, history and physical exam completed. Vitals within acceptable limits. Patient is ANO x 3 with a GCS of 15. There is a large left parietal hematoma noted with no overlying lacerations or wounds. No raccoon eyes, Eli sign or hemotympanums. No focal cervical spine tenderness, patient in c-collar by EMS. Patient is neurovascularly intact. Given patient's age and location of hematoma CT brain was performed and negative for acute intracranial abnormality or cervical spine fracture or subluxation. Upon reevaluation, patient resting comfortably on stretcher no signs of acute distress. Results discussed with patient, all questions answered. Patient ambulated to bathroom without difficulty. She will be discharged in stable condition with follow-up PCP. Conservative treatment options discussed. Strict return parameters discussed. Patient verbally expressed understanding and agreement with care plan. Case discussed with ED attending, Dr. Quick. Undiagnosed new problem with uncertain prognosis? @ -No Drug Therapy requiring intensive monitoring for toxicity (Heparin, Nitro, Insulin, Cardizem)? @ -No Were any procedures done? @ -No Diagnosis/symptom? @ -Scalp hematoma/fall Acute, or Chronic, or Acute on Chronic? @ -Acute Uncomplicated (without systemic symptoms) or Complicated (systemic symptoms)? @ -Uncomplicated Side effects of treatment? @ -No Exacerbation, Progression, or Severe Exacerbation? @ -No Poses a threat to life or bodily function? How? (Chest pain, USA, AR, pneumonia, PE, COPD, DKA, ARF, appy, cholecystitis, CVA, Diverticulitis, Homicidal, Suicidal, threat to staff... and all critical care pts) @ -No - Radiology Data Radiology results: report reviewed, image reviewed Disposition Clinical Impression: Scalp hematoma, Fall Disposition: HOME SELF-CARE Condition: Stable Instructions (If sedation given, give patient instructions): Fall Prevention for Older Adults (ED) Additional Instructions: You may take [id number] Tylenol for pain control. Follow-up with PCP. Return to the ER for any new or worsening concerns. Is patient prescribed a controlled substance at d/c from ED?: No Referrals: García Christy MD [Primary Care Provider] - 1-2 days Time of Disposition: 21:02
--- NOTE | 2024-12-26 19:43 | CT ---
EXAMINATION TYPE: CT brain cspine wo con DATE OF EXAM: 12/26/2024 7:28 PM COMPARISON: None. CLINICAL INDICATION: Female, 74 years old with history of fall right parietal scalp hematoma- no thin ners; Fall, posterior head hematoma, no thinners. TECHNIQUE: Brain: Multiple axial CT images of the brain were obtained without IV contrast. Cspine: Axial CT images from the skull base to the inferior aspect of T2 we obtained without intraven ous contrast. Coronal and sagittal reformatted images were also reviewed. . CT DLP: 1540.9 mGycm, Automated exposure control for dose reduction was used. FINDINGS: Brain: Extra-axial spaces: No abnormal extra-axial fluid collections. Ventricular system: Within normal limits Cerebral parenchyma: No acute intraparenchymal hemorrhage or mass effect. The bean-white junction is well differentiated. Scattered hypoattenuating areas are seen within the white matter. Cerebellum: Unremarkable. Mass effect: No evidence of midline shift. Intracranial vasculature: unremarkable Soft tissues: Large left posterior parieto-occipital scalp hematoma/contusion. Calvarium/osseous structures: No depressed skull fracture. Paranasal sinuses and mastoid air cells: Clear. Visualized orbits: Orbital contents are intact. Cervical spine: Fracture: None. Osseous structures: Unremarkable Vertebral alignment: Within normal limits. Spinal canal/Neural Foramina: Multilevel facet arthropathy/uncovertebral hypertrophy causes varying d egrees of neural foraminal narrowing. The patient has spinal canal limited due to streak artifact. Neck soft tissues: Prevertebral soft tissues are within normal limits. Other: The airway is patent. The lung apices are clear. IMPRESSION: 1. Large left posterior scalp hematoma without without evidence of an acute intracranial abnormality . 2. No acute fracture or traumatic subluxation of the cervical spine. [facility], , 12/26/2024 7:40 PM
[2024-12-26 21:23] VITALS: BP 143/75; PULSE 99; RESP 20; TEMP 98.1
== END 2024-12-26 21:22 | disposition home or self-care (01) ==
LOC: EC 18:45
DX: S00.03XA Contusion of scalp, initial encounter (principal); Z79.82 Long term (current) use of aspirin; Z87.891 Personal history of nicotine dependence; W01.0XXA Fall on same level from slipping, tripping and stumbling without subsequent striking against object, initial encounter; Y93.01 Activity, walking, marching and hiking
CPT/HCPCS: 70450; 72125; 99284